=== PATIENT | female | born 1980 | race Caucasian/White ===

== ENCOUNTER 2016-12-02 07:49 | Emergency (ER) | payer OTHER ==
[2016-12-02 08:07] VITALS: BP 136/82
--- NOTE | 2016-12-02 08:24 | UC ---
Throat Pain/Nasal Frank HPI - HPI Summary HPI Summary: 36 year old female with complaints of stuffy runny nose, scratchy throat, head congestion x 4 days. Last evening vomited and had loose stools. She did not go to work this morning and needs a note, Denies fever or chills. Denies abdominal pain. She has been taking fluids well this morning with no vomiting - History of Current Complaint Chief Complaint: UCRespiratory Stated Complaint: CONGESTION, COUGH Time Seen by Provider: 12/02/16 08:11 Hx Obtained From: Patient Hx Last Menstrual Period: nov 11 ?: No Onset/Duration: Gradual Onset, Lasting Days - 4, Still Present Severity: Moderate Associated Signs & Symptoms: Positive: Dysphagia - scratchy, Nasal Discharge, Vomiting - resolved. Negative: FB Sensation, Wheezing, Hoarseness, Sinus Discomfort, Fever, Rash Related History: Seasonal Allergies - Epiglottits Risk Factors Epiglottis Risk Factors: Negative - Allergies/Home Medications Allergies/Adverse Reactions: Allergies Allergy/AdvReac Type Severity Reaction Status Date / Time Atorvastatin [From Lipitor] Allergy Severe Hives Verified 10/10/16 18:10 Lisinopril Allergy Severe Hives Verified 10/10/16 18:10 Penicillins Allergy Severe Anaphylatic Verified 10/10/16 18:10 Shock Home Medications: Home Medications Fluticasone-Salmeterol 500-50* [Advair Diskus 500-50*] 1 puff PO BID 12/02/16 [ History Confirmed 12/02/16] Insulin GLARGINE(*) [Lantus(*)] 6 units SUBCUT Q12H 12/02/16 [History Confirmed 12/02/16] PMH/Surg Hx/FS Hx/Imm Hx Previously Healthy: Yes Endocrine History Of: Reports: Diabetes - TYPE 1, Dyslipidemia Denies: Thyroid Disease Cardiovascular History Of: Reports: Hypertension Denies: Cardiac Disorders, Pacemaker/ICD Respiratory History Of: Reports: Asthma, Bronchitis Denies: COPD GI/ History Of: Denies: Ulcer, Renal Disease Neurological History Of: Reports: Migraine - chronic (on topamax: 50mg BID) - Surgical History Surgical History: None Surgery Procedure, Year, and Place: never had surgery - Family History Known Family History: Positive: Hypertension, Diabetes - Social History Occupation: Employed Full-time - at fast food Lives: With Family Alcohol Use: None Substance Use Type: None Smoking Status (MU): Never Smoked Tobacco Have You Smoked in the Last Year: No - Immunization History Most Recent Influenza Vaccination: 07/2015 Most Recent Tetanus Shot: 07/2013 Most Recent Pneumonia Vaccination: never received Vaccination Up to Date: Yes Review of Systems Constitutional: Negative Skin: Negative Eyes: Negative ENT: Sore Throat - scratchy, Nasal Discharge Respiratory: Cough Cardiovascular: Negative Gastrointestinal: Vomiting, Diarrhea Genitourinary: Negative Motor: Negative Neurovascular: Negative Musculoskeletal: Negative Neurological: Negative Psychological: Negative All Other Systems Reviewed And Are Negative: Yes Physical Exam Triage Information Reviewed: Yes Appearance: No Pain Distress, Ill-Appearing - mildly, Obese Vital Signs: Initial Vital Signs Temp 97.1 F 12/02/16 08:01 Pulse 96 12/02/16 08:01 Resp 17 12/02/16 08:01 BP 136/82 12/02/16 08:01 Pulse Ox 99 12/02/16 08:01 Vital Signs Reviewed: Yes Eyes: Positive: Conjunctiva Clear. Negative: Discharge ENT: Positive: Hearing grossly normal, Pharynx normal, Nasal congestion, Nasal drainage, Other: - no sinus pain or pressure. Negative: Tonsillar swelling, Tonsillar exudate Neck: Positive: Supple, Nontender, No Lymphadenopathy Respiratory: Positive: Lungs clear, Normal breath sounds, No respiratory distress. Negative: Crackles, Rhonchi, Wheezing Cardiovascular: Positive: RRR, No Murmur Abdomen Description: Positive: Nontender, No Organomegaly, Soft. Negative: CVA Tenderness (R), CVA Tenderness (L), Distended, Guarding Musculoskeletal: Positive: Strength Intact, ROM Intact Neurological: Positive: Alert, Muscle Tone Normal Psychological: Positive: Age Appropriate Behavior - pleasant and cooperative Skin: Negative: rashes, breakdown Throat Pain/Nasal Course/Dx - Differential Dx/Diagnosis Differential Diagnosis/HQI/PQRI: URI Provider Diagnoses: URI Discharge - Discharge Plan Condition: Stable Disposition: HOME Prescriptions: Fluticasone NASAL SPRAY 50MCG* [Flonase NASAL SPRAY 50MCG*] 2 spray BOTH NARES DAILY #1 btl Patient Education Materials: Upper Respiratory Infection (ED), Fluticasone ( Into the nose) Forms: *Work Release Additional Instructions: Over the counter decongestants and or cough medication may help with your symptoms
== END 2016-12-02 08:30 | disposition home or self-care (01) ==
LOC: UCEAST 07:49
DX: J06.9 Acute upper respiratory infection, unspecified (principal); Z88.1 Allergy status to other antibiotic agents; Z88.8 Allergy status to other drugs, medicaments and biological substances; E10.9 Type 1 diabetes mellitus without complications; Z79.4 Long term (current) use of insulin
CPT/HCPCS: 99212; G0463

== ENCOUNTER 2016-12-06 09:15 | Emergency (ER) | payer OTHER ==
[2016-12-06 09:24] VITALS: BP 153/88
--- NOTE | 2016-12-06 10:27 | ED ---
Influenza-Like Illness - HPI Summary HPI Summary: 36 F presents with cough, diarrhea, runny nose, and headache for a week. She was seen at the urgent care a week ago and diagnosed with a URI. She says nothing has changed since then she is just not getting better. She is taking her normal advair, flonase, and robitussin without relief. 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 She denies any nausea, vomiting, or abdominal pain. She denies any wheezing or chest pain. She says she has been having to use her inhaler more often than usually. She denies any dysuria, blood in her stool or urine, and she has been able to tolerate food okay. - History of Current Complaint Chief Complaint: EDUpperRespComplaint Time Seen by Provider: 12/06/16 10:16 - Allergy/Home Medications Allergies/Adverse Reactions: Allergies Allergy/AdvReac Type Severity Reaction Status Date / Time Atorvastatin [From Lipitor] Allergy Severe Hives Verified 12/06/16 09:25 Lisinopril Allergy Severe Hives Verified 12/06/16 09:25 Penicillins Allergy Severe Anaphylatic Verified 12/06/16 09:25 Shock PMH/Surg Hx/FS Hx/Imm Hx Endocrine/Hematology History: Reports: Hx Diabetes - TYPE 1 Denies: Hx Thyroid Disease Cardiovascular History: Reports: Hx Hypertension Denies: Hx Pacemaker/ICD Respiratory History: Reports: Hx Asthma, Hx Chronic Bronchitis - not chronic. Has had bronchitis Denies: Hx Chronic Obstructive Pulmonary Disease (COPD) Comment Only: Other Respiratory Problems/Disorders - Bee allergy GI History: Denies: Hx Ulcer History: Denies: Hx Renal Disease Musculoskeletal History: Reports: Other Musculoskeletal History - early onset of MS Sensory History: Denies: Hx Hearing Aid Neurological History: Reports: Hx Migraine - chronic (on topamax: 50mg BID) Psychiatric History: Denies: Hx Panic Disorder - Surgical History Surgery Procedure, Year, and Place: never had surgery - Immunization History Date of Tetanus Vaccine: Unk Date of Influenza Vaccine: Fall 2013 Infectious Disease History: No Infectious Disease History: Denies: Hx Clostridium Difficile, Hx Hepatitis, Hx Human Immunodeficiency Virus (HIV), Hx of Known/Suspected MRSA, Hx Shingles, Hx Tuberculosis, Hx Known/ Suspected VRE, Hx Known/Suspected VRSA, History Other Infectious Disease, Traveled Outside the [place] in Last 30 Days - Family History Known Family History: Positive: Hypertension, Diabetes - Social History Alcohol Use: None Substance Use Type: Reports: None Smoking Status (MU): Never Smoked Tobacco Have You Smoked in the Last Year: No Review of Systems Negative: Fever Negative: Chest Pain Positive: Shortness Of Breath, Cough Positive: Diarrhea. Negative: Abdominal Pain, Vomiting, Nausea All Other Systems Reviewed And Are Negative: Yes Physical Exam Triage Information Reviewed: Yes Vital Signs On Initial Exam: Initial Vitals Temp Pulse Resp BP Pulse Ox 97.6 F 90 15 153/88 100 12/06/16 09:15 12/06/16 09:15 12/06/16 09:15 12/06/16 09:15 12/06/16 09:15 Vital Signs Reviewed: Yes Appearance: Positive: Ill-Appearing Skin: Positive: Warm, Dry Head/Face: Positive: Normal Head/Face Inspection Eyes: Positive: Normal, EOMI, GLORIA, Conjunctiva Clear ENT: Positive: Normal ENT inspection, Pharynx normal, TMs normal, Other - no sinus tenderness Neck: Positive: Supple, Nontender, No Lymphadenopathy Respiratory/Lung Sounds: Positive: Clear to Auscultation, Breath Sounds Present , Other - no evidence of consolidation. Negative: Wheezes Cardiovascular: Positive: Normal, RRR Abdomen Description: Positive: Nontender, Soft Bowel Sounds: Positive: Present Diagnostics - Vital Signs Vital Signs Temp Pulse Resp BP Pulse Ox 12/06/16 09:15 97.6 F 90 15 153/88 100 - Laboratory Result Diagrams: 12/06/16 10:52 12/06/16 10:52 Lab Statement: Any lab studies that have been ordered have been reviewed, and results considered in the medical decision making process. - Radiology chest Xray Interpretation: No Acute Changes Radiology Interpretation Completed By: Radiologist Flu Symptom Course/Dx - Course Course Of Treatment: 37 F w/ PMH of DM and asthma presents with cough, runny nose, headache, and diarrhea for over a week. seen at urgent care and diagnosed with URI, says nothing has changed, no abdominal pain, bloody diarrhea, or fever. has been using OTC without relief. PE benign except for nasal discharge presents, lungs CTA, will xray and get labs, flu negative, chest xray normal, WBC normal, glucose is elevated discussed that can follow up with PCP to adjust insulin as needed, discussed still likely viral and can continue up to 4 weeks, add loperamide and tessalon to symptomatic treatment, patient agrees with plan - Diagnoses Differential Diagnosis/HQI/PQRI: Positive: Influenza, Pneumonia, Upper Respiratory Infection Provider Diagnoses: Upper respiratory infection, Diarrhea Discharge - Discharge Plan Condition: Good Disposition: HOME Prescriptions: Benzonatate CAP* [Tessalon CAP*] 100 mg PO TID #15 cap Loperamide CAP* [Imodium CAP*] 2 mg PO SEE INSTRUCTIONS #16 cap Patient Education Materials: Upper Respiratory Infection (ED) Forms: *Work Release Referrals: Jong Lyon III [employer] [employer] [Primary Care Provider] - Additional Instructions: Use flonase and nasal saline for noses Continue normal asthma medication and use inhaler as needed every 6 hours Add tessalon up to three times a day for cough Loperamide Initial: 4 mg (2 tablets), followed by 2 mg (1 tablet) after each loose stool (maximum: 16 mg/day) Drink small amounts of fluid as tolerated When able to eat follow BRAT diet: Bananas, rice, applesauce, toast Take ibuprofen or Tylenol for pain as needed every 6 hours Follow up with primary within 5 days to discuss blood sugar Return to ED if develop fever, severe abdominal pain, or any new or worsening symptoms
--- NOTE | 2016-12-06 11:01 | RAD ---
INDICATION: Cough. COMPARISON: Comparison is made with prior chest x-ray study from January 04, 2016. TECHNIQUE: Dual-energy PA and lateral views of the chest were obtained. FINDINGS: Cardiac and mediastinal contours appear normal. The lungs are underinflated and clear. No pleural effusion is seen. IMPRESSION: NO EVIDENCE FOR ACTIVE CARDIOPULMONARY DISEASE.
[2016-12-06 11:03] LABS: Hematocrit 39 % (35-47); Hemoglobin 12.6 g/dl (12.0-16.0); Mean Corpuscular HGB Conc 32 g/dl (31-36); Mean Corpuscular Hemoglobin 26 pg (27-31); Mean Corpuscular Volume 82 fL (80-97); Mean Platelet Volume 9 um3 (7.4-10.4); Red Blood Count 4.79 10^6/ul (4.0-5.4); Red Cell Distribution Width 14 % (10.5-15); White Blood Count 8.9 10^3/ul (3.5-10.8)
[2016-12-06 11:14] LABS: ALT 16 U/L (7-52); AST 13 U/L (13-39); Albumin 4.3 g/dL (3.2-5.2); Alkaline Phosphatase 63 U/L (34-104); Anion Gap 8 mmol/L (2-11); BUN/Creatinine Ratio 15.1 (8-20); Blood Urea Nitrogen 11 mg/dL (6-24); CO2 Carbon Dioxide 23 mmol/L (22-32); Calcium 9.1 mg/dL (8.6-10.3); Chloride 104 mmol/L (101-111); EGFR African American 117.4 (>60); EGFR Non-African American 91.3 (>60); Globulin 3.1 g/dL (2-4); Glucose 251 mg/dL (70-100); Potassium 3.8 mmol/L (3.5-5.0); Sodium 135 mmol/L (133-145); Total Protein 7.4 g/dL (6.4-8.9)
== END 2016-12-06 11:44 | disposition home or self-care (01) ==
LOC: ED 09:15
DX: J06.9 Acute upper respiratory infection, unspecified (principal); R05 Cough; R19.7 Diarrhea, unspecified; R51 Headache; R06.02 Shortness of breath; Z88.0 Allergy status to penicillin
CPT/HCPCS: 36415; 71020; 80053; 84702; 85025; 87502; 99283

== ENCOUNTER 2016-12-09 11:15 | Emergency (ER) | payer OTHER ==
[2016-12-09] MEDS ORDERED: Pantoprazole IV* 40 MG IV ONE (16:25)
[2016-12-09] MEDS ORDERED: Ondansetron INJ* 2 MG/ML VIAL IV ONE (16:25)
[2016-12-09] MEDS ORDERED: Al Hydrox/Mg Hydrox/Simet LIQ* 30 ML UDC PO ONE (16:25)
[2016-12-09] MEDS ORDERED: NS 0.9% 1000 ML* 2,000 ML IV ONE (16:25)
[2016-12-09] MEDS ORDERED: Ketorolac INJ* 30 MG/ML 1 ML VIAL IV ONE (16:25)
[2016-12-09 16:40] LABS: Hematocrit 43 % (35-47); Hemoglobin 14.1 g/dl (12.0-16.0); Mean Corpuscular HGB Conc 33 g/dl (31-36); Mean Corpuscular Hemoglobin 26 pg (27-31); Mean Corpuscular Volume 79 fL (80-97); Mean Platelet Volume 9 um3 (7.4-10.4); Red Blood Count 5.37 10^6/ul (4.0-5.4); Red Cell Distribution Width 14 % (10.5-15); White Blood Count 11.9 10^3/ul (3.5-10.8)
[2016-12-09 16:53] LABS: ALT 18 U/L (7-52); AST 16 U/L (13-39); Alkaline Phosphatase 88 U/L (34-104); Anion Gap 9 mmol/L (2-11); BUN/Creatinine Ratio 22.4 (8-20); Blood Urea Nitrogen 15 mg/dL (6-24); C Reactive Protein 14.25 mg/L (< 5.00); CO2 Carbon Dioxide 23 mmol/L (22-32); Calcium 10.2 mg/dL (8.6-10.3); Chloride 101 mmol/L (101-111); Creatine Kinase 43 U/L (10-223); EGFR African American 129.6 (>60); EGFR Non-African American 100.8 (>60); Globulin 3.5 g/dL (2-4); Glucose 112 mg/dL (70-100); Lipase 17 U/L (11.0-82.0); Potassium 3.6 mmol/L (3.5-5.0); Sodium 133 mmol/L (133-145); Total Protein 8.5 g/dL (6.4-8.9)
[2016-12-09] MEDS ORDERED: Ketorolac INJ* 60 MG/2 ML VIAL ONE (17:23)
--- NOTE | 2016-12-09 17:30 | RAD ---
INDICATION: Right upper quadrant pain COMPARISON: None TECHNIQUE: Longitudinal and transverse scans of the right upper quadrant were obtained. Doppler interrogation of the hepatic and portal venous system was performed. FINDINGS: Liver: There is hepatic steatosis. There are no masses . The liver measures 16.7 cm in cephalocaudal dimension. Vessels: Hepatic and portal venous flow is not well assessed due to body habitus and bowel gas.. Bile ducts: There is no evidence of intrahepatic or extrahepatic ductal dilatation. The common duct measures 0.2 cm. Gallbladder: The sonographic appearance of the gallbladder is normal. There is no evidence of cholelithiasis, thickening of the gallbladder wall, or pericholecystic fluid. Pancreas: Not visualized due to bowel gas Right kidney: The right kidney is normal in size and echogenicity. There are no masses or calculi. There is no evidence of hydronephrosis. The right kidney measures 9.5 x 5.3 x 4.2 cm. IVC and aorta: The aorta and superior vena cava appear normal. Fluid: There is no ascites. Other: None. IMPRESSION: LIMITED STUDY. NORMAL GALLBLADDER. HEPATIC STEATOSIS.
[2016-12-09] MEDS ORDERED: Iohexol 350* (CONTRAST) 500 ML MDV IV ONE (17:34)
--- NOTE | 2016-12-09 18:29 | RAD ---
INDICATION: Chest pain. Short of breath. Evaluate for pulmonary embolus. Chest and abdominal pain COMPARISON: Chest x-ray same date; CTA chest August 01, 2014 TECHNIQUE: Axial source images were obtained from the thoracic inlet to the hemidiaphragms following administration of [address] angiographic technique was utilized. Coronal and sagittal reconstructed images were acquired. CHEST FINDINGS: Neck/thyroid: The visualized neck to include the thyroid appear normal. Chest wall: There are no acute abnormalities of the bony thorax or chest wall. There is no supraclavicular, infraclavicular, or axillary lymphadenopathy. Lungs : There are no pulmonary parenchymal masses or infiltrates. The pulmonary interstitium appears normal. There are no endobronchial lesions. Cardiomediastinal structures: There is no CT evidence of acute pulmonary embolic disease. The heart is normal in size. There is no pericardial effusion. There is no evidence of aortic aneurysm or dissection. There is no mediastinal or hilar adenopathy. The esophagus appears normal. Pleura : There are no pleural-based masses or effusions. Other: None. IMPRESSION: NO CT EVIDENCE OF ACUTE PULMONARY EMBOLIC DISEASE. LUNGS CLEAR.
[2016-12-09] MEDS ORDERED: HYDROcodone/ACETAMIN 5-325 MG* 1 TAB PO ONE (20:38)
--- NOTE | 2016-12-09 20:43 | ED ---
Carloz Banerjee Billy, scribed for Gerson Boyer MD on 12/09/16 at 1625 . HPI Chest Pain - HPI Summary HPI Summary: Patient is a 36 year-old female coming to [facility] presenting with constant midsternal chest pain since last night at 2200. At rest during onset. She describes sharp pain, severity 9/10. Pain is worse with positional changes ( leaning forward, leaning back). She denies any nausea, abdominal pain, or leg edema. She states she feels dizzy and warm at this time; no diaphoresis. She also reports mild SOB. She does not use oral BC. - History of Current Complaint Chief Complaint: EDChestPainROMI Time Seen by Provider: 12/09/16 16:07 Hx Obtained From: Patient Onset/Duration: Started Hours Ago Time of Onset: 22:00 Timing: Constant Initial Severity: Moderate Current Severity: Moderate Pain Intensity: 9 Pain Scale Used: 0-10 Numeric Chest Pain Location: Mid Sternal Chest Pain Radiates: No Character: Sharp/Stabbing Aggravating Factor(s): Position Alleviating Factor(s): Nothing Associated Signs and Symptoms: Positive: Chest Pain, Shortness of Breath, Other : - dizzy, warm. Negative: Swelling, Nausea, Abdominal Pain, Calf Pain/Swelling , Edema - Allergy/Home Medications Allergies/Adverse Reactions: Allergies Allergy/AdvReac Type Severity Reaction Status Date / Time Atorvastatin [From Lipitor] Allergy Severe Hives Verified 12/09/16 11:22 Lisinopril Allergy Severe Hives Verified 12/09/16 11:22 Penicillins Allergy Severe Anaphylatic Verified 12/09/16 11:22 Shock PMH/Surg Hx/FS Hx/Imm Hx Endocrine/Hematology History: Reports: Hx Diabetes - TYPE 1 Denies: Hx Thyroid Disease Cardiovascular History: Reports: Hx Hypertension Denies: Hx Pacemaker/ICD Respiratory History: Reports: Hx Asthma, Hx Chronic Bronchitis - not chronic. Has had bronchitis Denies: Hx Chronic Obstructive Pulmonary Disease (COPD) Comment Only: Other Respiratory Problems/Disorders - Bee allergy GI History: Denies: Hx Ulcer History: Denies: Hx Renal Disease Musculoskeletal History: Reports: Other Musculoskeletal History - early onset of MS Sensory History: Denies: Hx Hearing Aid Neurological History: Reports: Hx Migraine - chronic (on topamax: 50mg BID) Psychiatric History: Denies: Hx Panic Disorder - Surgical History Surgery Procedure, Year, and Place: never had surgery - Immunization History Date of Tetanus Vaccine: Unk Date of Influenza Vaccine: Fall 2013 Infectious Disease History: No Infectious Disease History: Denies: Hx Clostridium Difficile, Hx Hepatitis, Hx Human Immunodeficiency Virus (HIV), Hx of Known/Suspected MRSA, Hx Shingles, Hx Tuberculosis, Hx Known/ Suspected VRE, Hx Known/Suspected VRSA, History Other Infectious Disease, Traveled Outside the [place] in Last 30 Days - Family History Known Family History: Positive: Hypertension, Diabetes - Social History Alcohol Use: None Substance Use Type: Reports: None Smoking Status (MU): Never Smoked Tobacco Have You Smoked in the Last Year: No Review of Systems Positive: Other - feels warm. Negative: Skin Diaphoresis Positive: Chest Pain Positive: Shortness Of Breath Negative: Abdominal Pain, Nausea Negative: Edema Neurological: Other - dizzy All Other Systems Reviewed And Are Negative: Yes Physical Exam Triage Information Reviewed: Yes Vital Signs On Initial Exam: Initial Vitals Temp Pulse Resp BP Pulse Ox 98.0 F 86 18 120/79 100 12/09/16 11:22 12/09/16 11:22 12/09/16 11:22 12/09/16 11:22 12/09/16 11:22 Vital Signs Reviewed: Yes Appearance: Positive: Well-Appearing, Pain Distress - mild Skin: Positive: Warm, Skin Color Reflects Adequate Perfusion, Dry Head/Face: Positive: Normal Head/Face Inspection Eyes: Positive: EOMI, GLORIA ENT: Positive: Normal ENT inspection Neck: Positive: Supple, Nontender Respiratory/Lung Sounds: Positive: Clear to Auscultation, Breath Sounds Present Cardiovascular: Positive: RRR, Other - chest wall tenderness Abdomen Description: Positive: Soft, Other: - epigastric tenderness Bowel Sounds: Positive: Present Musculoskeletal: Positive: Normal, Strength/ROM Intact, Other - No pedal edema or calf tenderness.. Negative: Edema Left, Edema Right Neurological: Positive: Normal, Sensory/Motor Intact, Alert, Oriented to Person Place, Time Psychiatric: Positive: Affect/Mood Appropriate Diagnostics - Vital Signs Vital Signs Temp Pulse Resp BP Pulse Ox 12/09/16 14:49 102 18 125/90 98 12/09/16 13:04 95 18 148/99 99 12/09/16 12:26 98.6 F 88 20 139/85 99 12/09/16 11:22 98.0 F 86 18 120/79 100 - Laboratory Lab Results: Lab Results 12/09/16 12/09/16 12/09/16 Range/Units 16:11 16:11 16:11 WBC 11.9 H (3.5-10.8) 10^3/ul RBC 5.37 (4.0-5.4) 10^6/ul Hgb 14.1 (12.0-16.0) g/dl Hct 43 (35-47) % MCV 79 L (80-97) fL MCH 26 L (27-31) pg MCHC 33 (31-36) g/dl RDW 14 (10.5-15) % Plt Count 350 (150-450) 10^3/ul MPV 9 (7.4-10.4) um3 Neut % (Auto) 64.3 (38-83) % Lymph % (Auto) 26.6 (25-47) % Rush % (Auto) 7.0 (1-9) % Eos % (Auto) 1.4 (0-6) % Baso % (Auto) 0.7 (0-2) % Absolute Neuts (auto) 7.7 (1.5-7.7) 10^3/ul Absolute Lymphs (auto) 3.2 (1.0-4.8) 10^3/ul Absolute Monos (auto) 0.8 (0-0.8) 10^3/ul Absolute Eos (auto) 0.2 (0-0.6) 10^3/ul Absolute Basos (auto) 0.1 (0-0.2) 10^3/ul Absolute Nucleated RBC 0.02 10^3/ul Nucleated RBC % 0.2 INR (Anticoag Therapy) 0.95 (0.89-1.11) APTT 30.9 (26.0-36.3) seconds Sodium 133 (133-145) mmol/L Potassium 3.6 (3.5-5.0) mmol/L Chloride 101 (101-111) mmol/L Carbon Dioxide 23 (22-32) mmol/L Anion Gap 9 (2-11) mmol/L BUN 15 (6-24) mg/dL Creatinine 0.67 (0.51-0.95) mg/dL Est GFR ( Amer) 129.6 (>60) Est GFR (Non-Af Amer) 100.8 (>60) BUN/Creatinine Ratio 22.4 H (8-20) Glucose 112 H (70-100) mg/dL Lactic Acid (0.5-2.0) mmol/L Calcium 10.2 (8.6-10.3) mg/dL Magnesium 2.0 (1.9-2.7) mg/dL Total Bilirubin 0.80 (0.2-1.0) mg/dL AST 16 (13-39) U/L ALT 18 (7-52) U/L Alkaline Phosphatase 88 (34-104) U/L Total Creatine Kinase 43 (10-223) U/L CK-MB (CK-2) 0.7 (0.6-6.3) ng/mL Troponin I 0.00 (<0.04) ng/mL C-Reactive Protein 14.25 H (< 5.00) mg/L B-Natriuretic Peptide ( - 100) pg/mL Total Protein 8.5 (6.4-8.9) g/dL Albumin 5.0 (3.2-5.2) g/dL Globulin 3.5 (2-4) g/dL Albumin/Globulin Ratio 1.4 (1-3) Lipase 17 (11.0-82.0) U/L TSH 1.60 (0.34-5.60) mcIU/mL Beta HCG, Quant < 0.60 mIU/mL 12/09/16 12/09/16 Range/Units 16:11 16:11 WBC (3.5-10.8) 10^3/ul RBC (4.0-5.4) 10^6/ul Hgb (12.0-16.0) g/dl Hct (35-47) % MCV (80-97) fL MCH (27-31) pg MCHC (31-36) g/dl RDW (10.5-15) % Plt Count (150-450) 10^3/ul MPV (7.4-10.4) um3 Neut % (Auto) (38-83) % Lymph % (Auto) (25-47) % Rush % (Auto) (1-9) % Eos % (Auto) (0-6) % Baso % (Auto) (0-2) % Absolute Neuts (auto) (1.5-7.7) 10^3/ul Absolute Lymphs (auto) (1.0-4.8) 10^3/ul Absolute Monos (auto) (0-0.8) 10^3/ul Absolute Eos (auto) (0-0.6) 10^3/ul Absolute Basos (auto) (0-0.2) 10^3/ul Absolute Nucleated RBC 10^3/ul Nucleated RBC % INR (Anticoag Therapy) (0.89-1.11) APTT (26.0-36.3) seconds Sodium (133-145) mmol/L Potassium (3.5-5.0) mmol/L Chloride (101-111) mmol/L Carbon Dioxide (22-32) mmol/L Anion Gap (2-11) mmol/L BUN (6-24) mg/dL Creatinine (0.51-0.95) mg/dL Est GFR ( Amer) (>60) Est GFR (Non-Af Amer) (>60) BUN/Creatinine Ratio (8-20) Glucose (70-100) mg/dL Lactic Acid 1.8 (0.5-2.0) mmol/L Calcium (8.6-10.3) mg/dL Magnesium (1.9-2.7) mg/dL Total Bilirubin (0.2-1.0) mg/dL AST (13-39) U/L ALT (7-52) U/L Alkaline Phosphatase (34-104) U/L Total Creatine Kinase (10-223) U/L CK-MB (CK-2) (0.6-6.3) ng/mL Troponin I (<0.04) ng/mL C-Reactive Protein (< 5.00) mg/L B-Natriuretic Peptide 16 ( - 100) pg/mL Total Protein (6.4-8.9) g/dL Albumin (3.2-5.2) g/dL Globulin (2-4) g/dL Albumin/Globulin Ratio (1-3) Lipase (11.0-82.0) U/L TSH (0.34-5.60) mcIU/mL Beta HCG, Quant mIU/mL Result Diagrams: 12/09/16 16:11 12/09/16 16:11 Lab Statement: Any lab studies that have been ordered have been reviewed, and results considered in the medical decision making process. - CT CTA chest CT Interpretation Completed By: Radiologist - NO CT EVIDENCE OF ACUTE PULMONARY EMBOLIC DISEASE. LUNGS CLEAR. - Ultrasound No standard instances Ultrasound Interpretation Completed By: Radiologist - Gallbladder US: Limited study. Normal gallbladder. Hepatic steatosis. - EKG 1118 EKG Interpretation: NSR 89 bpm, normal ST segment, no ectopy Chest Pain Course/Dx - Course Assessment/Plan: DISCUSSED RESULTS WITH PATIENT. DISCHARGE HOME STABLE. - Diagnoses Provider Diagnoses: Chest pain, Upper abdominal pain Discharge - Discharge Plan Condition: Stable Disposition: HOME Prescriptions: HYDROcodone/ACETAMIN 5-325 MG* [[place] 5-325 TAB*] 1 tab PO Q6H PRN #10 tab MDD 4 PRN Reason: Pain Omeprazole CAP* [Prilosec CAP* 20 MG] 20 mg PO BID #30 cap.dr Patient Education Materials: Chest Pain (ED), Abdominal Pain (ED) Referrals: Jong Lyon III, [employer] [Primary Care Provider] - Additional Instructions: FOLLOW UP WITH YOUR DOCTOR. TAKE THE ANTACID MEDICATION, OMEPRAZOLE DIRECTED. RETURN TO THE EMERGENCY DEPARTMENT FOR ANY WORSENING OF YOUR CONDITION; PAIN, FEVER, SHORTNESS OF BREATH, YOU FEEL ILL OR QUESTIONS OR CONCERNS. The documentation as recorded by the Carloz arias Billy accurately reflects the service I personally performed and the decisions made by me, Gerson Boyer MD.
[2016-12-09 22:01] VITALS: BP 105/55
== END 2016-12-09 21:59 | disposition home or self-care (01) ==
LOC: ED 11:15
DX: R07.9 Chest pain, unspecified (principal); R10.10 Upper abdominal pain, unspecified; E10.9 Type 1 diabetes mellitus without complications; G43.909 Migraine, unspecified, not intractable, without status migrainosus; I10 Essential (primary) hypertension; G35 Multiple sclerosis; J45.909 Unspecified asthma, uncomplicated; Z88.0 Allergy status to penicillin
CPT/HCPCS: 36415; 71275; 76705; 80053; 82550; 82553; 83605; 83690; 83735; 83880; 84443; 84484; 84702; 85025; 85610; 85730; 86140; 93005; 96360; 96374; 96375; 99285; A9270-GY; J1885; J2405; Q9967

== ENCOUNTER 2017-01-18 20:02 | Emergency (ER) | payer OTHER ==
[2017-01-18] MEDS ORDERED: Cyclobenzaprine TAB* 10 MG PO ONE (20:55)
[2017-01-18] MEDS ORDERED: oxyCODONE/Acetamin 5/325 MG* TAB PO ONE (20:55)
[2017-01-18 21:01] VITALS: BP 124/73
--- NOTE | 2017-01-18 21:11 | ED ---
Back Pain - HPI Summary HPI Summary: 36F presents with back pain today. Pain is locate on the left side of her lower back. She denies any injury. She states she has had this pain before. She states the pain does not radiate anywhere. She denies any numbness or tingling. She denies any loss of bowel or bladder or saddle anaesthesia. Patient already took 800mg ibuprofen before arrival. - History of Current Complaint Chief Complaint: EDBackInjuryPain Time Seen by Provider: 01/18/17 20:45 Hx Last Menstrual Period: nov 11 Pain Intensity: 10 - Allergies/Home Medications Allergies/Adverse Reactions: Allergies Allergy/AdvReac Type Severity Reaction Status Date / Time Atorvastatin [From Lipitor] Allergy Severe Hives Verified 12/09/16 11:22 Lisinopril Allergy Severe Hives Verified 12/09/16 11:22 Penicillins Allergy Severe Anaphylatic Verified 12/09/16 11:22 Shock PMH/Surg Hx/FS Hx/Imm Hx Endocrine/Hematology History: Reports: Hx Diabetes - TYPE 1 Denies: Hx Thyroid Disease Cardiovascular History: Reports: Hx Hypertension Denies: Hx Pacemaker/ICD Respiratory History: Reports: Hx Asthma, Hx Chronic Bronchitis - not chronic. Has had bronchitis Denies: Hx Chronic Obstructive Pulmonary Disease (COPD) Comment Only: Other Respiratory Problems/Disorders - Bee allergy GI History: Denies: Hx Ulcer History: Denies: Hx Renal Disease Musculoskeletal History: Reports: Other Musculoskeletal History - early onset of MS Sensory History: Denies: Hx Hearing Aid Neurological History: Reports: Hx Migraine - chronic (on topamax: 50mg BID) Psychiatric History: Denies: Hx Panic Disorder - Surgical History Surgery Procedure, Year, and Place: never had surgery - Immunization History Date of Tetanus Vaccine: Unk Date of Influenza Vaccine: Fall 2013 Infectious Disease History: No Infectious Disease History: Denies: Hx Clostridium Difficile, Hx Hepatitis, Hx Human Immunodeficiency Virus (HIV), Hx of Known/Suspected MRSA, Hx Shingles, Hx Tuberculosis, Hx Known/ Suspected VRE, Hx Known/Suspected VRSA, History Other Infectious Disease, Traveled Outside the [place] in Last 30 Days - Family History Known Family History: Positive: Hypertension, Diabetes - Social History Alcohol Use: None Substance Use Type: Reports: None Smoking Status (MU): Never Smoked Tobacco Have You Smoked in the Last Year: No Review of Systems Negative: Fever Negative: Chest Pain Negative: Shortness Of Breath Positive: Myalgia - back pain All Other Systems Reviewed And Are Negative: Yes Physical Exam Triage Information Reviewed: Yes Vital Signs On Initial Exam: Initial Vitals Temp Pulse Resp BP Pulse Ox 97.3 F 95 16 141/88 100 01/18/17 20:03 01/18/17 20:03 01/18/17 20:03 01/18/17 20:03 01/18/17 20:03 Vital Signs Reviewed: Yes Appearance: Positive: Well-Appearing Skin: Positive: Warm, Dry Head/Face: Positive: Normal Head/Face Inspection Eyes: Positive: Normal, Conjunctiva Clear Respiratory/Lung Sounds: Positive: Clear to Auscultation, Breath Sounds Present Cardiovascular: Positive: Normal, RRR Musculoskeletal: Positive: Other - no midline tenderness, tender to left side of lower back, neg SLR Diagnostics - Vital Signs Vital Signs Temp Pulse Resp BP Pulse Ox 01/18/17 21:01 97.7 F 97 20 124/73 98 01/18/17 20:03 97.3 F 95 16 141/88 100 - Laboratory Lab Statement: Any lab studies that have been ordered have been reviewed, and results considered in the medical decision making process. Back Pain Course/Dx - Course Course Of Treatment: 36F presents with left side lower back that does not radiated anywhere. no injury. on exam pain is not midline, neg SLR. gave pain medication and pain improved, gave script for muscle relaxers and will have follow up with primary, patient understands and agrees with plan - Diagnoses Differential Diagnosis/HQI/PQRI: Positive: Herniated Disc, Strain, Sprain Provider Diagnoses: Back pain Discharge - Discharge Plan Condition: Good Disposition: HOME Prescriptions: Cyclobenzaprine TAB* [Flexeril TAB*] 10 mg PO TID PRN #9 tab PRN Reason: Pain Patient Education Materials: Back Pain (ED) Referrals: Jong Lyon III OVERWEAVER [Primary Care Provider] - Additional Instructions: Take muscle relaxers three times a day for 3 days Apply lidocaine patches to area for up to 12 hours in one 24 hour period Use ibuprofen or Tylenol for pain every 6 hours ice/heat area, move as much as possible Follow up with primary within 5 days Return to ED if unable to ambulate or develop any new or worsening symptoms
== END 2017-01-18 21:40 | disposition home or self-care (01) ==
LOC: ED 20:02
DX: M54.9 Dorsalgia, unspecified (principal)
CPT/HCPCS: 99282; A9270-GY

== ENCOUNTER 2017-02-06 17:07 | Emergency (ER) | payer OTHER ==
--- NOTE | 2017-02-06 18:46 | ED ---
Respiratory - HPI Summary HPI Summary: 37F w/ PMH of asthma and DM presents with left ear pain, chest congestion, for a day. She took cold and flu without relief. She denies any chest pain or SOB. She admits to headache, nasal discharge, nausea, and diarrhea. She denies any abdominal pain, vomiting, fever, or sore throat. She has not been using her inhaler. She denies any one else being sick. She admits to fatigue. She takes insulin for her DM and states that sugars have been a little bit higher than normal. - History of Current Complaint Chief Complaint: EDEarPain Stated Complaint: EAR PAIN,HEAD CONGESTION Time Seen by Provider: 02/06/17 18:23 Pain Intensity: 8 - Allergy/Home Medications Allergies/Adverse Reactions: Allergies Allergy/AdvReac Type Severity Reaction Status Date / Time Atorvastatin [From Lipitor] Allergy Severe Hives Verified 02/06/17 17:12 Lisinopril Allergy Severe Hives Verified 02/06/17 17:12 Penicillins Allergy Severe Anaphylatic Verified 02/06/17 17:12 Shock PMH/Surg Hx/FS Hx/Imm Hx Endocrine/Hematology History: Reports: Hx Diabetes - TYPE 1 Denies: Hx Thyroid Disease Cardiovascular History: Reports: Hx Hypertension Denies: Hx Pacemaker/ICD Respiratory History: Reports: Hx Asthma, Hx Chronic Bronchitis - not chronic. Has had bronchitis Denies: Hx Chronic Obstructive Pulmonary Disease (COPD) Comment Only: Other Respiratory Problems/Disorders - Bee allergy GI History: Denies: Hx Ulcer History: Denies: Hx Renal Disease Musculoskeletal History: Reports: Other Musculoskeletal History - early onset of MS Sensory History: Denies: Hx Hearing Aid Neurological History: Reports: Hx Migraine - chronic (on topamax: 50mg BID) Psychiatric History: Denies: Hx Panic Disorder - Surgical History Surgery Procedure, Year, and Place: never had surgery - Immunization History Date of Tetanus Vaccine: Unk Date of Influenza Vaccine: Fall 2013 Infectious Disease History: No Infectious Disease History: Denies: Hx Clostridium Difficile, Hx Hepatitis, Hx Human Immunodeficiency Virus (HIV), Hx of Known/Suspected MRSA, Hx Shingles, Hx Tuberculosis, Hx Known/ Suspected VRE, Hx Known/Suspected VRSA, History Other Infectious Disease, Traveled Outside the [place] in Last 30 Days - Family History Known Family History: Positive: Hypertension, Diabetes - Social History Alcohol Use: None Substance Use Type: Reports: None Smoking Status (MU): Never Smoked Tobacco Have You Smoked in the Last Year: No Review of Systems Negative: Fever Positive: Ear Ache, Nasal Discharge. Negative: Sore Throat Negative: Chest Pain Positive: Cough. Negative: Shortness Of Breath Positive: Diarrhea, Nausea. Negative: Abdominal Pain, Vomiting All Other Systems Reviewed And Are Negative: Yes Physical Exam Triage Information Reviewed: Yes Vital Signs On Initial Exam: Initial Vitals Temp Pulse Resp BP Pulse Ox 98.2 F 70 18 155/86 100 02/06/17 17:12 02/06/17 17:12 02/06/17 17:12 02/06/17 17:12 02/06/17 17:12 Vital Signs Reviewed: Yes Appearance: Positive: Well-Appearing Skin: Positive: Warm, Dry Head/Face: Positive: Normal Head/Face Inspection Eyes: Positive: Normal, Conjunctiva Clear ENT: Positive: Normal ENT inspection, Pharynx normal, TMs normal - fluid located behind left ear. Negative: TM bulging, TM dull, TM red Respiratory/Lung Sounds: Positive: Clear to Auscultation, Breath Sounds Present , Other - neg egophony Cardiovascular: Positive: Normal, RRR Abdomen Description: Positive: Nontender, Soft Bowel Sounds: Positive: Present Diagnostics - Vital Signs Vital Signs Temp Pulse Resp BP Pulse Ox 02/06/17 17:12 98.2 F 70 18 155/86 100 - Laboratory Lab Statement: Any lab studies that have been ordered have been reviewed, and results considered in the medical decision making process. - Radiology chest Xray Interpretation: No Acute Changes Radiology Interpretation Completed By: Radiologist Disposition - Course Course Of Treatment: 37F presents with left ear pain, chest congestion for a day. on exam lungs CTA, ear fluid behind left ear but no redness or bulging, told to use flonase prescribed last time saw patient to relief pressure along with saline rinses. flu swap negative. chest xray normal. discussed with patient and would like robitussin AC which prescribed and zofran for nausea. discussed likely viral and to treat supporatively. patient understands and agrees with plan - Differential Dx - Cardiopulmonary Differential Diagnoses - Cardiopulmonary: Asthma, Bronchitis, Influenza, Lower Resp Infection - Diagnoses Provider Diagnoses: Upper respiratory infection Discharge - Discharge Plan Condition: Good Disposition: HOME Prescriptions: Ondansetron ODT TAB* [Zofran 4 MG Odt TAB*] 4 mg PO Q6H PRN #12 tab.odt PRN Reason: Nausea guaiFENesin/CODIEN 100MG-10MG* [Robitussin AC 100Mg-10Mg*] 5 ml PO Q4H PRN #120 ml MDD 6 PRN Reason: Cough Patient Education Materials: Upper Respiratory Infection (ED) Forms: *Work Release Referrals: Jong Lyon III, QUILL SKINNER [Primary Care Provider] - Additional Instructions: Use Robitussin 5ml (1 teaspoon) every 4 hours as need for cough Use inhaler one puff every 4 hours for cough as needed Take zofran every 6 hours as needed for nausea Use saline in the nose for nasal congestion Use Flonase one spray each nostril twice a day Use humidifier or place warm bowls of water around the room Can Tylenol or ibuprofen every 6 hours for pain Follow up with primary care physician in 5 days Return to ED if develop chest pain or shortness of breath or any new or worsening symptoms
--- NOTE | 2017-02-06 20:05 | RAD ---
INDICATION: Cough COMPARISON: Similar chest x-ray dated December 06, 2016 TECHNIQUE: PA and lateral views of the chest were obtained. FINDINGS: The heart and mediastinum are normal in size and contour. The lungs are grossly clear. There is no evidence of large pleural effusion. Visualized bones are normal for the patient's age. There is no radiographic evidence of free air beneath the diaphragm IMPRESSION: No radiographic evidence of acute cardiopulmonary disease.
[2017-02-06 20:16] VITALS: BP 150/80
== END 2017-02-06 20:15 | disposition home or self-care (01) ==
LOC: ED 17:07
DX: J06.9 Acute upper respiratory infection, unspecified (principal); H92.09 Otalgia, unspecified ear; R05 Cough; R19.7 Diarrhea, unspecified; R11.0 Nausea
CPT/HCPCS: 71020; 87502; 99282

== ENCOUNTER 2017-02-18 08:32 | Emergency (ER) | payer OTHER ==
[2017-02-18 08:54] VITALS: BP 126/69
--- NOTE | 2017-02-18 09:36 | UC ---
Skin Complaint HPI - HPI Summary HPI Summary: The patient comes in today for: 1. Red bumps: Onset: Last night. Palliative/provocative: Nothing makes the red bumps better or worse. Quality: Itching. Region: Arms, stomach, legs, hands--none on her scalp or face. Severity: 9/10 Time: Constant. Associated symptoms: Previous treatment: Cortisone cream (OTC)--no help. Previous problem: None. Fevers: None. Cough/shortness of breath: NOne. Others at home: None. * - History of Current Complaint Chief Complaint: UCSkin Time Seen by Provider: 02/18/17 09:31 Stated Complaint: RED ITCHY BUMPS/SKIN Hx Obtained From: Patient Hx Last Menstrual Period: 02/01/17 - Allergy/Home Medications Allergies/Adverse Reactions: Allergies Allergy/AdvReac Type Severity Reaction Status Date / Time Atorvastatin [From Lipitor] Allergy Severe Hives Verified 02/18/17 08:38 Lisinopril Allergy Severe Hives Verified 02/18/17 08:38 Penicillins Allergy Severe Anaphylatic Verified 02/18/17 08:38 Shock Review of Systems Constitutional: Negative Skin: Rash Eyes: Negative ENT: Negative Respiratory: Negative Cardiovascular: Negative Gastrointestinal: Negative Genitourinary: Negative All Other Systems Reviewed And Are Negative: Yes PMH/Surg Hx/FS Hx/Imm Hx Previously Healthy: No Endocrine History Of: Reports: Diabetes - TYPE 1, Dyslipidemia - Not on medication at this time. Denies: Thyroid Disease, Hyperthyroidism, Hypothyroidism Cardiovascular History Of: Reports: Hypertension Denies: Cardiac Disorders, Pacemaker/ICD, Myocardial Infarction, Congestive Heart Failure, Atrial Fibrillation, Deep Vein Thrombosis, Bleeding Disorders Respiratory History Of: Reports: Asthma Denies: COPD, Bronchitis, Pneumonia, Pulmonary Embolism GI/ History Of: Denies: Gastroesophageal Reflux, Ulcer, Gastrointestinal Bleed, Gall Bladder Disease, Kidney Stones, Diverticulitis, Renal Disease, Urosepsis Neurological History Of: Reports: Migraine - chronic (on topamax: 50mg BID) Denies: TIA, CVA, Dementia, Seizures Psychological History Of: Denies: Anxiety, Depression, Bipolar Disorder, Schizophrenia, Post Traumatic Stress Disorder Cancer History Of: Denies: Lung Cancer, Colorectal Cancer, Breast Cancer, Prostate Cancer, Cervical Cancer Other History Of: Negative For: HIV, Hepatitis B, Hepatitis C, Anticoagulant Therapy - Surgical History Surgical History: None Surgery Procedure, Year, and Place: Denies - Family History Known Family History: Positive: Hypertension, Diabetes - Social History Occupation: Employed Full-time Alcohol Use: None Substance Use Type: None Smoking Status (MU): Never Smoked Tobacco Have You Smoked in the Last Year: No - Immunization History Most Recent Influenza Vaccination: 07/2015 Most Recent Tetanus Shot: 07/2013 Most Recent Pneumonia Vaccination: never received Vaccination Up to Date: Yes Physical Exam Triage Information Reviewed: Yes Appearance: Well-Appearing, No Pain Distress, Well-Nourished Vital Signs: Initial Vital Signs Temp 97.9 F 02/18/17 08:43 Pulse 80 02/18/17 08:43 Resp 16 02/18/17 08:43 BP 126/69 02/18/17 08:43 Pulse Ox 100 02/18/17 08:43 Vital Signs Reviewed: Yes Eyes: Positive: Conjunctiva Clear. Negative: Discharge ENT: Negative: Pharyngeal erythema, Nasal congestion, Nasal drainage, TM bulging , TM dull, TM red, Tonsillar swelling, Tonsillar exudate Dental: Negative: Gross Decay/Caries @, Dental Fracture @ Neck: Positive: Supple, Nontender, No Lymphadenopathy. Negative: Nuchal Rigidity Respiratory: Positive: Chest non-tender, Lungs clear, No respiratory distress, No accessory muscle use. Negative: Rhonchi, Wheezing Cardiovascular: Positive: RRR, No Murmur Abdomen Description: Positive: Nontender, No Organomegaly, Soft. Negative: Distended, Guarding Musculoskeletal: Positive: Strength Intact, ROM Intact, No Edema Neurological: Positive: Alert, Muscle Tone Normal Psychological: Positive: Age Appropriate Behavior, Consolable Skin: Positive: rashes - She has 2-4 erythematous papules of the right arm. A few less were on the left arm. No lesions were seen elsewhere on the body except of the lower abdomen. No vesicles.. Negative: breakdown Course/Dx - Course Course Of Treatment: Please take the medication as directed and see your primary care provider early next week. - Differential Diagnoses - Skin Complaint Differential Diagnoses: Cellulitis, Impetigo, Urticaria - Diagnoses Provider Diagnoses: Papular urticaria. Discharge - Discharge Plan Condition: Stable Disposition: HOME Patient Education Materials: Urticaria (ED) Referrals: Jong Lyon III, NP [Primary Care Provider] - 1 Week (Please see your primary care provider in a week to see how well you are doing. If you get worse, please be seen sooner in the ER or through us.)
== END 2017-02-18 09:58 | disposition home or self-care (01) ==
LOC: UCEAST 08:32
DX: L50.8 Other urticaria (principal); E10.9 Type 1 diabetes mellitus without complications; I10 Essential (primary) hypertension; J45.909 Unspecified asthma, uncomplicated
CPT/HCPCS: 99212; G0463

== ENCOUNTER 2018-05-12 19:05 | Emergency (ER) | payer OTHER ==
[2018-05-12 19:30] VITALS: BP 164/93
--- NOTE | 2018-05-13 06:21 | ED ---
Delfino Banerjee Tiffany, scribed for Ankit De Jesus MD on 05/12/18 at 1949 . Back Pain - HPI Summary HPI Summary: 38 year old F presenting to [facility] complains of right-sided back pain s/p lifting heavy boxes two days ago at work. Describes the pain as constant. Rates the pain 8/10 in severity. Symptoms aggravated by walking, exertion, breathing. Symptoms alleviated by nothing. Patient denies fever, shortness of breath. Patient says she is not supposed to lift heavy boxes because she had in Dec 2017 that hasn't healed completely. 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 - History of Current Complaint Chief Complaint: EDBackInjuryPain Stated Complaint: PAIN ON RT SIDE Time Seen by Provider: 05/12/18 19:36 Hx Obtained From: Patient Hx Last Menstrual Period: 02/01/17 Onset/Duration: Lasting Days - 2, Still Present Onset/Duration: Started Days Ago - 2, Still Present Timing: Constant Severity Currently: Severe Pain Intensity: 8 Pain Scale Used: 0-10 Numeric Aggravating Symptom(s): Lifting, Walking, Other - exertion Alleviating Symptom(s): Nothing Associated Signs And Symptoms: Positive: Negative - shortness of breath. Negative: Fever - Allergies/Home Medications Allergies/Adverse Reactions: Allergies Allergy/AdvReac Type Severity Reaction Status Date / Time atorvastatin Allergy Hives Verified 05/12/18 19:39 lisinopril Allergy Hives Verified 05/12/18 19:39 Penicillins Allergy Anaphylatic Verified 05/12/18 19:39 Shock PMH/Surg Hx/FS Hx/Imm Hx Previously Healthy: No Endocrine/Hematology History: Reports: Hx Diabetes - TYPE 1 Denies: Hx Anticoagulant Therapy, Hx Thyroid Disease Cardiovascular History: Reports: Hx Hypercholesterolemia, Hx Hypertension Denies: Hx Congestive Heart Failure, Hx Deep Vein Thrombosis, Hx Myocardial Infarction, Hx Pacemaker/ICD Respiratory History: Reports: Hx Asthma, Hx Chronic Bronchitis - not chronic. Has had bronchitis Denies: Hx Chronic Obstructive Pulmonary Disease (COPD), Hx Lung Cancer, Hx Pneumonia, Hx Pulmonary Embolism Comment Only: Other Respiratory Problems/Disorders - Bee allergy GI History: Denies: Hx Gall Bladder Disease, Hx Gastrointestinal Bleed, Hx Ulcer, Hx Urosepsis History: Denies: Hx Kidney Stones, Hx Renal Disease Musculoskeletal History: Reports: Other Musculoskeletal History - early onset of MS Sensory History: Denies: Hx Hearing Aid Neurological History: Reports: Hx Migraine - chronic (on topamax: 50mg BID) Denies: Hx Dementia, Hx Seizures, Hx Transient Ischemic Attacks (TIA) Psychiatric History: Denies: Hx Anxiety, Hx Depression, Hx Panic Disorder, Hx Schizophrenia, Hx Bipolar Disorder - Surgical History Surgery Procedure, Year, and Place: Dec 2017 - Immunization History Date of Tetanus Vaccine: Unk Date of Influenza Vaccine: Fall 2013 Infectious Disease History: No Infectious Disease History: Denies: Hx Clostridium Difficile, Hx Hepatitis, Hx Human Immunodeficiency Virus (HIV), Hx of Known/Suspected MRSA, Hx Shingles, Hx Tuberculosis, Hx Known/ Suspected VRE, Hx Known/Suspected VRSA, History Other Infectious Disease, Traveled Outside the [place] in Last 30 Days - Family History Known Family History: Positive: Hypertension, Diabetes - Social History Alcohol Use: None Hx Substance Use: No Substance Use Type: Reports: None Hx Tobacco Use: No Smoking Status (MU): Never Smoked Tobacco Have You Smoked in the Last Year: No Review of Systems Negative: Fever Negative: Shortness Of Breath Positive: Other - right-sided back pain All Other Systems Reviewed And Are Negative: Yes Physical Exam - Summary Physical Exam Summary: ppearance: Well appearing, no pain distress Skin: warm, dry, reflects adequate perfusion Head/face: normal Eyes: EOMI, GLORIA ENT: normal Neck: supple, non-tender Respiratory: CTA, breath sounds present Cardiovascular: RRR, pulses symmetrical Abdomen: non-tender, soft Bowel Sounds: present Musculoskeletal: normal ROM, mild muscular tenderness on the right mid to lower parathoracic and upper paralumbar musculature Neuro: normal, sensory motor intact, A&Ox3 Triage Information Reviewed: Yes Vital Signs On Initial Exam: Initial Vitals Temp Pulse Resp BP Pulse Ox 98.0 F 87 16 164/93 98 05/12/18 19:10 05/12/18 19:10 05/12/18 19:10 05/12/18 19:10 05/12/18 19:10 Vital Signs Reviewed: Yes Diagnostics - Vital Signs Vital Signs Temp Pulse Resp BP Pulse Ox 05/12/18 19:10 98.0 F 87 16 164/93 98 - Laboratory Lab Statement: Any lab studies that have been ordered have been reviewed, and results considered in the medical decision making process. Back Pain Course/Dx - Course Course Of Treatment: Patient with minimal discomfort with motion in her mid thoracic through upper lumbar area. No midline tenderness or indication for imaging. Treat symptomatically. Refer to chiropractic. - Diagnoses Provider Diagnoses: Lumbar strain, Strain of thoracic region Discharge - Sign-Out/Discharge Documenting (check all that apply): Discharge/Admit/Transfer - discharge - Discharge Plan Condition: Good Disposition: HOME Prescriptions: Cyclobenzaprine (NF) [Cyclobenzaprine 5 MG (NF)] 5 mg PO TID PRN #12 tab PRN Reason: muscle pain Naproxen [Naproxen 250 mg tab] 250 mg PO BID PRN #10 tablet PRN Reason: Pain Patient Education Materials: Back Pain (ED), Lower Back Exercises (ED) Referrals: Jong Lyon III COMBIN[employer] WINDOW INSTALLER [Primary Care Provider] - Additional Instructions: Call [facility] at [address] [place] [address]. . Call first thing in the morning for an appointment Ice sore areas, range of motion exercises and stretching may help. Return with difficulty breathing, worse, new symptoms, high blood sugars, or other concerns - Billing Disposition and Condition Condition: GOOD Disposition: Home The documentation as recorded by the Delfino arias Tiffany accurately reflects the service I personally performed and the decisions made by , Ankit De Jesus MD.
== END 2018-05-12 20:03 | disposition home or self-care (01) ==
LOC: ED 19:05
DX: S39.012A Strain of muscle, fascia and tendon of lower back, initial encounter (principal); S29.012A Strain of muscle and tendon of back wall of thorax, initial encounter; E10.9 Type 1 diabetes mellitus without complications; E78.00 Pure hypercholesterolemia, unspecified; I10 Essential (primary) hypertension; J45.909 Unspecified asthma, uncomplicated; G35 Multiple sclerosis; X50.0XXA Overexertion from strenuous movement or load, initial encounter; Y92.9 Unspecified place or not applicable
CPT/HCPCS: 99282

== ENCOUNTER 2018-08-22 08:24 | Emergency (ER) | payer OTHER ==
--- OUTSIDE RECORDS SUMMARY | 2018-08-22 08:37 | XMS REPORT | Continuity of Care Document ---
:1980 External Reference #:[id number] Author Name Sekou Cueva MD Address [address] [place] [address] Care Team Providers Name Role Phone PRETTY Arzola III Care Team Information Fitter Up Unavailable Payers Type Date Identification Numbers Payment Provider Subscriber Expires: 2018 Policy Number: [id number] Jeff [facility] PayID: [id number] [address] [place] [address] Effective: 2018 Policy Number: Nickolas [facility] [id number] Medicaid PayID: [id number] [address] Advance Directives Description No Information Available Problems Description No Information Family History Date Family Member(s) Problem(s) Comments General Unknown Social History Type Date Description Comments Sex Unknown Occupation [employer] Tobacco Use Start: Unknown Never Smoked Cigarettes ETOH Use Denies alcohol use Tobacco Use Start: Unknown Patient has never smoked Smoking Status Reviewed: 11/03/16 Patient has never smoked Exercise Type/Frequency Walks daily Moving around a lot at work Allergies, Adverse Reactions, Alerts Date Description Reaction Status Severity Comments 11/03/2016 Penicillin Active 05/02/2018 Latex Hives Active 07/15/2018 Seroquel Active hives Medications Medication Date Status Form Strength Qnty SIG Indications Ordering Provider Triamcinolone 07/25 Active Cream 0.1% 30gm 1 apply to L50.1 Sekou Acetonide affected [place] area daily , Imitrex 06/30 Active Tablets 50mg 18tab take 1 Sekou s tablet by Heetdertamiko mouth at , onset of headache; may repeat once as needed; maximum daily dose=2 Diabetes Test 06/10 Active 100un Compatible E11.9 Jong its with Camron monitor III, CLIENT SERVICE MANAGER-C Lancets 06/09 Active 100un compatible E11.9 Sekou its with Hammad snider MD next Zyrtec Allergy 06/07 Active Capsules 10mg 90cap 1 by mouth Sekou /2017 s every day MD Hammad Lisinopril-Hydroch 03/25 Active Tablets 20-25mg 30tab 1 by mouth Sekou lorothiazide s every day MD Hammad Atenolol 12/24 Active Tablets 100mg 30tab Take One Sekou s Tablet By [place]et[place]tamiko Mouth Every , Day Basaglar Kwikpen 02/23 Active Solution 100Unit/M 3ml inject Pen-Injec L units at [facility] t bedtime MD Pen [place] 03/30" 11/13 Active Misc 31G X 8 100un use on mm its solostar Camron pen every III, day CLIENT SERVICE MANAGER-C Topiramate Active Tablets 50mg 60tab 1 by mouth Sekou / s twice daily MD Hammad Potassium Chloride Active Capsules 10Meq 120ca 1 by mouth Sekou ER /0000 ER ps 4x daily MD Hammad Onetouch Verio 06/10 Hx Strips 200un use to test its twice daily Shortle, - SALESPERSON [employer] 06/10 Diabetes Test 06/09 Hx 100un Compatible E11.9 Sekou its with Hammad - monitor MD 06/10 Seroquel 06/09 Hx Tablets 25mg 30tab 1 tab by F31.31 Sek[facility] , 07/15 Fluticasone 02/05 Hx Aerosol 232-14mcg 2unit inhale 1 Sekou Propionate/[place] /2017 /Act s puff by Hammad rol - mouth 2 MD 07/25 times per day for asthma Onemei Conte 01/20 Hx Strips 100un to test Sekou its daily fs Hammad Gómez glucose MD 06/10 Jarrell Conte 01/13 Hx Kit w/Device 1unit monitor Sekou Sync Bloodglucose s blood sugar Hammad Monitoring System MD Dalia 06/10 Prednisone 12/30 Hx Tablets 50mg 3tabs 1 by mouth With Food P. - 13 Hours Blegen, 01/12 Prior, 7 M.D. /2016 Hours Prior And 1 Hour Prior To Procedure Lantus Solostar 11/13 Hx Solution 100Unit/M 15ml inject 14 E11.9 Jong Pen-Injec L units at [place] - t bedtime III, 02/23 [facility]- Atenolol Hx Tablets 50mg 30tab 1 by mouth Sekou /0000 s every day Hammad Gómez MD 12/09 Loratadine Hx Tablets 10mg 30tab take one Sekou /0000 s tablet by [place] - mouth every MD 06/07 day for allergies Glipizide Hx Tablets 10mg 30tab 1 by mouth Sekou /0000 s daily Hammad Gómez MD 12/09 Metformin HCL Hx Tablets 1000mg 60tab take one E11.9 Jong /0000 s tablet by Camron - mouth once III, 01/12 daily for 2 weeks, then stop. Benzonatate Hx Capsules 200mg Unknown /0000 - 12/09 Cyclobenzaprine Hx Tablets 10mg Unknown HCL /0000 - 12/09 Advair Diskus Hx Aerosol 250-50mcg 60uni Inhale 1 Sekou /0000 /Dose ts puff by [place] - mouth MD Cyndi 02/07 times per day for chronic obstructive lung disease Ventolin HFA Hx Aerosol 108(90Bas 8gm 2 puffs Sekou /0000 e) every every Hammad Gómez mcg/Act 4-6 hours MD 12/24 as needed wheezing/ti ghtness Omeprazole Hx Tablets 20mg 30tab 1 by mouth Sekou /0000 DR s twice daily Hammad Gómez MD 12/24 Hydrocodone-Acetam Hx Tablets 5-325mg 10tab 1 by mouth Jong inophen /0000 s every six Camron - hours as III, 07/25 needed for CLIENT SERVICE MANAGER-C severe pain. Labetalol HCL Hx Tablets 300mg take two Unknown /0000 tablet by - mouth twice 12/24 a Nifedipine ER Hx Tablets 60mg 1 tab by Unknown /0000 ER 24HR mouth daily - every 12/09 Lisinopril Hx Tablets 10mg 30tab Take One Sekou /0000 s Tablet By Avietrossi - Mouth Every MD Hydrochlorothiazid Hx Tablets 25mg 30tab Take One Sekou e /0000 s Tablet By Avietrossi - Mouth Santi , Immunizations CPT Code Status Date Vaccine Lot # [id number] Given 08/04/2017 Tdap (Adacel) [id number] Given 08/04/2017 Influenza Virus Vaccine, Quadrivalent, 3 Yr > Quad, Preserv Free [id number] Given 01/12/2017 Influenza Virus Vaccine, Quadrivalent, 3 Yr > [id number] Quad, Preserv Free Vital Signs Date Vital Result Comment 07/25/2018 9:16am Weight 188.00 lb Weight 85.277 kg BP Systolic 130 mmHg BP Diastolic 78 mmHg Heart Rate 60 /min Body Temperature 98.0 F Respiratory Rate 16 /min Height 63.5 inches 5'3.50" BMI (Body Mass Index) 32.8 kg/m2 O2 % BldC Oximetry 98 % 06/09/2018 1:23pm Weight 197.00 lb Weight 89.359 kg BP Systolic 98 mmHg BP Diastolic 72 mmHg Heart Rate 72 /min Body Temperature 97.2 F Respiratory Rate 18 /min O2 % BldC Oximetry 98 % 05/02/2018 4:55pm Weight 205.00 lb Weight 92.988 kg BP Systolic 134 mmHg BP Diastolic 82 mmHg Heart Rate 69 /min Body Temperature 99.2 F Respiratory Rate 15 /min Height 63.5 inches 5'3.50" BMI (Body Mass Index) 35.7 kg/m2 O2 % BldC Oximetry 98 % 04/12/2018 10:33am BP Systolic 120 mmHg BP Diastolic 92 mmHg 12/24/2017 10:42am Weight 194.00 lb Weight 87.998 kg BP Systolic 155 mmHg BP Diastolic 80 mmHg Heart Rate 112 /min Body Temperature 98.0 F O2 % BldC Oximetry 98 % 12/09/2017 1:38pm Weight 198.00 lb Weight 89.813 kg BP Systolic 174 mmHg BP Diastolic 94 mmHg Heart Rate 109 /min Body Temperature 96.7 F Respiratory Rate 18 /min O2 % BldC Oximetry 98 % 01/26/2017 8:47am Weight 222.00 lb Weight 100.699 kg BP Systolic 124 mmHg BP Diastolic 78 mmHg Heart Rate 90 /min Body Temperature 96.7 F Respiratory Rate 18 /min O2 % BldC Oximetry 99 % 01/12/2017 4:02pm Weight 219.00 lb Weight 99.338 kg BP Systolic 120 mmHg BP Diastolic 72 mmHg Heart Rate 72 /min Body Temperature 97.7 F O2 % BldC Oximetry 98 % 12/29/2016 9:34am Weight 219.00 lb Weight 99.338 kg BP Systolic 100 mmHg BP Diastolic 68 mmHg Heart Rate 68 /min Body Temperature 96.9 F Respiratory Rate 12 /min 12/15/2016 2:10pm Weight 219.00 lb Weight 99.338 kg BP Systolic 100 mmHg BP Diastolic 70 mmHg Heart Rate 72 /min Body Temperature 97.0 F Respiratory Rate 12 /min 12/08/2016 9:01am Weight 217.00 lb Weight 98.431 kg BP Systolic 120 mmHg BP Diastolic 90 mmHg Heart Rate 94 /min Body Temperature 97.7 F Respiratory Rate 14 /min O2 % BldC Oximetry 97 % 12/01/2016 8:41am Weight 216.00 lb Weight 97.978 kg BP Systolic 100 mmHg BP Diastolic 70 mmHg Heart Rate 64 /min Body Temperature 97.1 F Respiratory Rate 12 /min 11/13/2016 9:07am Weight 219.00 lb Weight 99.338 kg BP Systolic 120 mmHg BP Diastolic 80 mmHg Heart Rate 64 /min Body Temperature 97.3 F Respiratory Rate 12 /min 11/03/2016 12:57pm Weight 220.00 lb Weight 99.792 kg BP Systolic 140 mmHg BP Diastolic 90 mmHg Heart Rate 72 /min Body Temperature 97.4 F Respiratory Rate 14 /min Height 62.5 inches 5'2.50" BMI (Body Mass Index) 39.6 kg/m2 Results Test Date Facility Test Result H/L Range Note Laboratory test [facility] Hemoglobin A1c 5.4 % 4.0-5.6 1 finding [phone] (Glyco HGB) Lipid Profile [facility] Triglycerides 188 mg/dL 2 (Trig/Chol/HDL) 8 [phone] Cholesterol 220 mg/dL 3 HDL Cholesterol 42.4 mg/dL 4 LDL Cholesterol 140 mg/dL 5 CBC Auto Diff 06/09/2018 [facility] White Blood 8.9 10^3/uL 3.5-10.8 [phone] Count Red Blood Count 5.32 10^6/uL 4.00-5.40 Hemoglobin 14.1 g/dL 12.0-16.0 Hematocrit 42 % 35-47 Mean Corpuscular Volume 78 fL Low 80-97 Mean Corpuscular Hemoglobin 27 pg 27-31 Mean Corpuscular HGB Conc 34 g/dL 31-36 Red Cell Distribution Width 15 % 10.5-15 Platelet Count 305 10^3/uL 150-450 Mean Platelet Volume 8.6 um3 7.4-10.4 Abs Neutrophils 6.4 10^3/uL 1.5-7.7 Abs Lymphocytes 1.5 10^3/uL 1.0-4.8 Abs Monocytes 0.7 10^3/uL 0-0.8 Abs Eosinophils 0.2 10^3/uL 0-0.6 Abs Basophils 0 10^3/uL 0-0.2 Abs Nucleated RBC 0 10^3/uL Granulocyte % 72.1 % 38-83 Lymphocyte % 17.3 % Low 25-47 Monocyte % 8.3 % High 0-7 Eosinophil % 1.9 % 0-6 Basophil % 0.4 % 0-2 Nucleated Red Blood Cells % 0 Comp Metabolic Panel 06/09/2018 [facility] Sodium 138 mmol/L 135-145 [phone] Potassium 3.8 mmol/L 3.5-5.0 Chloride 106 mmol/L 101-111 Co2 Carbon Dioxide 22 mmol/L 22-32 Anion Gap 10 mmol/L 2-11 Glucose 98 mg/dL 70-100 Blood Urea Nitrogen 20 mg/dL 6-24 Creatinine 0.78 mg/dL 0.51-0.95 BUN/Creatinine Ratio 25.6 High 8-20 Calcium 9.6 mg/dL 8.6-10.3 Total Protein 7.5 g/dL 6.4-8.9 Albumin 4.7 g/dL 3.2-5.2 Globulin 2.8 g/dL 2-4 Albumin/Globulin Ratio 1.7 1-3 Total Bilirubin 1.70 mg/dL High 0.2-1.0 Alkaline Phosphatase 88 U/L 34-104 Alt 11 U/L 7-52 Ast 11 U/L Low 13-39 Egfr Non- 83.6 >60 Egfr 101.1 >60 6 Urine Microalbumin 06/09/2018 [facility] Ur Microalbumin 18.6 Random [phone] (mg/L) Urine Creatinine 121.97 mg/dL Urine Microalbumin/Creatinine 15.2 <31 CBC Auto Diff 12/09/2017 [facility] White Blood 7.1 10^3/uL 3.5-10.8 [phone] Count Red Blood Count 4.59 10^6/uL 4.0-5.4 Hemoglobin 12.6 g/dL 12.0-16.0 Hematocrit 37 % 35-47 Mean Corpuscular Volume 81 fL 80-97 Mean Corpuscular Hemoglobin 28 pg 27-31 Mean Corpuscular HGB Conc 34 g/dL 31-36 Red Cell Distribution Width 15 % 10.5-15 Platelet Count 314 10^3/uL 150-450 Mean Platelet Volume 9 um3 7.4-10.4 Abs Neutrophils 5.1 10^3/uL 1.5-7.7 Abs Lymphocytes 1.2 10^3/uL 1.0-4.8 Abs Monocytes 0.6 10^3/uL 0-0.8 Abs Eosinophils 0.2 10^3/uL 0-0.6 Abs Basophils 0 10^3/uL 0-0.2 Abs Nucleated RBC 0 10^3/uL Granulocyte % 71.3 % 38-83 Lymphocyte % 16.9 % Low 25-47 Monocyte % 8.1 % 1-9 Eosinophil % 3.0 % 0-6 Basophil % 0.7 % 0-2 Nucleated Red Blood Cells % 0.1 Comp Metabolic Panel 12/09/2017 [facility] Sodium 138 mmol/L 133-145 [phone] Potassium 3.8 mmol/L 3.5-5.0 Chloride 105 mmol/L 101-111 Co2 Carbon Dioxide 23 mmol/L 22-32 Anion Gap 10 mmol/L 2-11 Glucose 77 mg/dL 70-100 Blood Urea Nitrogen 8 mg/dL 6-24 Creatinine 0.72 mg/dL 0.51-0.95 BUN/Creatinine Ratio 11.1 8-20 Calcium 9.0 mg/dL 8.6-10.3 Total Protein 6.7 g/dL 6.4-8.9 Albumin 4.1 g/dL 3.2-5.2 Globulin 2.6 g/dL 2-4 Albumin/Globulin Ratio 1.6 1-3 Total Bilirubin 1.10 mg/dL High 0.2-1.0 Alkaline Phosphatase 89 U/L 34-104 Alt 12 U/L 7-52 Ast 13 U/L 13-39 Egfr Non- 92.2 >60 Egfr 118.5 >60 7 Laboratory test 12/09/2017 [facility] Hemoglobin A1c 5.4 % 4.0-5.6 8 finding [phone] (Glyco HGB) Lipid Profile 12/09/2017 [facility] Triglycerides 221 9 (Trig/Chol/HDL) [phone] mg/dL Cholesterol 250 mg/dL 10 HDL Cholesterol 45.2 mg/dL 11 LDL Cholesterol 161 mg/dL 12 Laboratory 02/10/2017 [facility] Hemoglobin 6.5 % High Less than 13 test finding [phone] A1c (Glyco 6.0 HGB) Rapid 02/06/2017 [facility] Influenza A NEGATIVE Negative 14 Influenza A & [phone] Molecular B Molecular Influenza B Molecular NEGATIVE Negative Laboratory 02/06/2017 [facility] Rapid SEE RESULT 15 test finding [phone] Influenza A BELOW & B Antigen Hepatitis 12/15/2016 [facility] Hepatitis B Nonreactive Nonreactive Acute Panel [phone] Surface Antigen Hepatitis C Antibody Nonreactive Nonreactive Hepatitis B Core IgM Nonreactive Nonreactive Hepatitis A AB IgM Nonreactive Nonreactive CBC Auto Diff 12/15/2016 [facility] White Blood 10.3 10^3/uL 3.5-10.8 [phone] Count Red Blood Count 4.93 10^6/uL 4.0-5.4 Hemoglobin 13.0 g/dL 12.0-16.0 Hematocrit 40 % 35-47 Mean Corpuscular Volume 81 fL 80-97 Mean Corpuscular Hemoglobin 26 pg Low 27-31 Mean Corpuscular HGB Conc 33 g/dL 31-36 Red Cell Distribution Width 14 % 10.5-15 Platelet Count 323 10^3/uL 150-450 Mean Platelet Volume 9 um3 7.4-10.4 Abs Neutrophils 6.4 10^3/uL 1.5-7.7 Abs Lymphocytes 2.8 10^3/uL 1.0-4.8 Abs Monocytes 0.7 10^3/uL 0-0.8 Abs Eosinophils 0.2 10^3/uL 0-0.6 Abs Basophils 0.1 10^3/uL 0-0.2 Abs Nucleated RBC 0.03 10^3/uL Granulocyte % 62.7 % 38-83 Lymphocyte % 27.3 % 25-47 Monocyte % 7.2 % 1-9 Eosinophil % 2.3 % 0-6 Basophil % 0.5 % 0-2 Nucleated Red Blood Cells % 0.3 Laboratory test 12/09/2016 [facility] Partial 30.9 seconds 26.0-36.3 finding [phone] Thrombo Time PTT Lactic Acid 1.8 mmol/L 0.5-2.0 16 Inr/Protime 12/09/2016 [facility] Inr 0.95 0.89- 1.11 [phone] Laboratory test 12/09/2016 [facility] HCG < 0.60 17 finding [phone] mIU/mL TSH (Thyroid Stimulating Horm) 1.60 mcIU/mL 0.34-5.60 CKMB 12/09/2016 [facility] CKMB ng/mL 0.7 ng/mL 0.6-6.3 [phone] Laboratory test 12/09/2016 [facility] Magnesium 2.0 mg/dL 1.9-2.7 finding [phone] Lipase 17 U/L 11.0-82.0 Creatine Kinase 43 U/L 10-223 C Reactive Protein 14.25 mg/L High < 5.00 18 Troponin-I (TnI) 0.00 ng/mL <0.04 19 Comp Metabolic Panel 12/09/2016 [facility] Sodium 133 mmol/L 133-145 [phone] Potassium 3.6 mmol/L 3.5-5.0 Chloride 101 mmol/L 101-111 Co2 Carbon Dioxide 23 mmol/L 22-32 Anion Gap 9 mmol/L 2-11 Glucose 112 mg/dL High 70-100 Blood Urea Nitrogen 15 mg/dL 6-24 Creatinine 0.67 mg/dL 0.51-0.95 BUN/Creatinine Ratio 22.4 High 8-20 Calcium 10.2 mg/dL 8.6-10.3 Total Protein 8.5 g/dL 6.4-8.9 Albumin 5.0 g/dL 3.2-5.2 Globulin 3.5 g/dL 2-4 Albumin/Globulin Ratio 1.4 1-3 Total Bilirubin 0.80 mg/dL 0.2-1.0 Alkaline Phosphatase 88 U/L 34-104 Alt 18 U/L 7-52 Ast 16 U/L 13-39 Egfr Non- 100.8 >60 Egfr 129.6 >60 20 Laboratory test 12/09/2016 [facility] B-Type 16 pg/ mL 21 finding [phone] Natriuretic Peptide BNP CBC Auto Diff 12/09/2016 [facility] White Blood 11.9 High 3.5-1 [phone] Count 10^3/uL 0.8 Red Blood Count 5.37 10^6/uL 4.0-5.4 Hemoglobin 14.1 g/dL 12.0-16.0 Hematocrit 43 % 35-47 Mean Corpuscular Volume 79 fL Low 80-97 Mean Corpuscular Hemoglobin 26 pg Low 27-31 Mean Corpuscular HGB Conc 33 g/dL 31-36 Red Cell Distribution Width 14 % 10.5-15 Platelet Count 350 10^3/uL 150-450 Mean Platelet Volume 9 um3 7.4-10.4 Abs Neutrophils 7.7 10^3/uL 1.5-7.7 Abs Lymphocytes 3.2 10^3/uL 1.0-4.8 Abs Monocytes 0.8 10^3/uL 0-0.8 Abs Eosinophils 0.2 10^3/uL 0-0.6 Abs Basophils 0.1 10^3/uL 0-0.2 Abs Nucleated RBC 0.02 10^3/uL Granulocyte % 64.3 % 38-83 Lymphocyte % 26.6 % 25-47 Monocyte % 7.0 % 1-9 Eosinophil % 1.4 % 0-6 Basophil % 0.7 % 0-2 Nucleated Red Blood Cells % 0.2 CBC Auto Diff 12/06/2016 [facility] White Blood 8.9 10^3/uL 3.5-10.8 [phone] Count Red Blood Count 4.79 10^6/uL 4.0-5.4 Hemoglobin 12.6 g/dL 12.0-16.0 Hematocrit 39 % 35-47 Mean Corpuscular Volume 82 fL 80-97 Mean Corpuscular Hemoglobin 26 pg Low 27-31 Mean Corpuscular HGB Conc 32 g/dL 31-36 Red Cell Distribution Width 14 % 10.5-15 Platelet Count 312 10^3/uL 150-450 Mean Platelet Volume 9 um3 7.4-10.4 Abs Neutrophils 6.0 10^3/uL 1.5-7.7 Abs Lymphocytes 2.1 10^3/uL 1.0-4.8 Abs Monocytes 0.6 10^3/uL 0-0.8 Abs Eosinophils 0.2 10^3/uL 0-0.6 Abs Basophils 0 10^3/uL 0-0.2 Abs Nucleated RBC 0 10^3/uL Granulocyte % 67.3 % 38-83 Lymphocyte % 23.4 % Low 25-47 Monocyte % 7.0 % 1-9 Eosinophil % 1.9 % 0-6 Basophil % 0.4 % 0-2 Nucleated Red Blood Cells % 0 Comp Metabolic Panel 12/06/2016 [facility] Sodium 135 mmol/L 133-145 [phone] Potassium 3.8 mmol/L 3.5-5.0 Chloride 104 mmol/L 101-111 Co2 Carbon Dioxide 23 mmol/L 22-32 Anion Gap 8 mmol/L 2-11 Glucose 251 mg/dL High 70-100 Blood Urea Nitrogen 11 mg/dL 6-24 Creatinine 0.73 mg/dL 0.51-0.95 BUN/Creatinine Ratio 15.1 8-20 Calcium 9.1 mg/dL 8.6-10.3 Total Protein 7.4 g/dL 6.4-8.9 Albumin 4.3 g/dL 3.2-5.2 Globulin 3.1 g/dL 2-4 Albumin/Globulin Ratio 1.4 1-3 Total Bilirubin 0.50 mg/dL 0.2-1.0 Alkaline Phosphatase 63 U/L 34-104 Alt 16 U/L 7-52 Ast 13 U/L 13-39 Egfr Non- 91.3 >60 Egfr 117.4 >60 22 Laboratory test 12/06/2016 [facility] HCG < 0.60 23 finding [phone] mIU/mL Rapid Influenza 12/06/2016 [facility] Influenza A NEGATIVE Negative 24 A & B Molecular [phone] Molecular Influenza B Molecular NEGATIVE Negative Laboratory test 12/06/2016 [facility] Rapid Influenza SEE RESULT 25 finding [phone] A & B Antigen BELOW CBC Auto Diff 11/10/2016 [facility] White Blood 9.6 10^3/uL 3.5-10 [phone] Count .8 Red Blood Count 4.67 10^6/uL 4.0-5.4 Hemoglobin 12.6 g/dL 12.0-16.0 Hematocrit 37 % 35-47 Mean Corpuscular Volume 80 fL 80-97 Mean Corpuscular Hemoglobin 27 pg 27-31 Mean Corpuscular HGB Conc 34 g/dL 31-36 Red Cell Distribution Width 14 % 10.5-15 Platelet Count 328 10^3/uL 150-450 Mean Platelet Volume 9 um3 7.4-10.4 Abs Neutrophils 5.9 10^3/uL 1.5-7.7 Abs Lymphocytes 2.8 10^3/uL 1.0-4.8 Abs Monocytes 0.7 10^3/uL 0-0.8 Abs Eosinophils 0.2 10^3/uL 0-0.6 Abs Basophils 0 10^3/uL 0-0.2 Abs Nucleated RBC 0 10^3/uL Granulocyte % 61.3 % 38-83 Lymphocyte % 29.4 % 25-47 Monocyte % 7.0 % 1-9 Eosinophil % 1.9 % 0-6 Basophil % 0.4 % 0-2 Nucleated Red Blood Cells % 0 Comp Metabolic Panel 11/10/2016 [facility] Sodium 136 mmol/L 133-145 [phone] Potassium 4.1 mmol/L 3.5-5.0 Chloride 105 mmol/L 101-111 Co2 Carbon Dioxide 24 mmol/L 22-32 Anion Gap 7 mmol/L 2-11 Glucose 123 mg/dL High 70-100 Blood Urea Nitrogen 7 mg/dL 6-24 Creatinine 0.60 mg/dL 0.51-0.95 BUN/Creatinine Ratio 11.7 8-20 Calcium 9.1 mg/dL 8.6-10.3 Total Protein 6.7 g/dL 6.4-8.9 Albumin 4.2 g/dL 3.2-5.2 Globulin 2.5 g/dL 2-4 Albumin/Globulin Ratio 1.7 1-3 Total Bilirubin 0.90 mg/dL 0.2-1.0 Alkaline Phosphatase 66 U/L 34-104 Alt 25 U/L 7-52 Ast 24 U/L 13-39 Egfr Non- 114.4 >60 Egfr 147.2 >60 26 Lipid Profile 11/10/2016 [facility] Triglycerides 161 mg/dL 27 (Trig/Chol/HDL) [phone] Cholesterol 214 mg/dL 28 HDL Cholesterol 39.4 mg/dL 29 LDL Cholesterol 142 mg/dL 30 Laboratory test 11/03/2016 [facility] Hemoglobin A1c 7.6 % High Less than 31 finding [phone] (Glyco HGB) 6.0 1 Therapeutic target for the treatment of diabetes mellitus patients is <7% HBA1C, and in selective patients <6.0%. Please refer to [place] [employer] diabetic care guidelines for further information. 2 Desirable: <150 Borderline High: 150-199 High: 200-499 Very High: >500 3 Desirable: <200 Borderline High: 200-239 High: >239 4 Low: <40 Desirable: 40-60 High: >60 5 Desirable: <100 Near Optimal: 100-129 Borderline High: 130-159 High: 160-189 Very High: >189 6 Because ethnic data is not always readily available, this report includes an eGFR for both -Americans and non- Americans. The National Kidney Disease Education Program (NKDEP) does not endorse the use of the MDRD equation for patients that are not between the ages of 18 and 70, are , have extremes of body size, muscle mass, or nutritional status, or are non- or non-. According to the National Kidney Foundation, irrespective of diagnosis, the stage of the disease is based on the level of kidney function: Stage Description GFR(mL/min/1.73 m(2)) 1 Kidney damage with normal or decreased GFR 90 2 Kidney damage with mild decrease in GFR 60-89 3 Moderate decrease in GFR 30-59 4 Severe decrease in GFR 15-29 5 Kidney failure <15 (or dialysis) 7 Because ethnic data is not always readily available, this report includes an eGFR for both -Americans and non- Americans. The National Kidney Disease Education Program (NKDEP) does not endorse the use of the MDRD equation for patients that are not between the ages of 18 and 70, are , have extremes of body size, muscle mass, or nutritional status, or are non- or non-. According to the National Kidney Foundation, irrespective of diagnosis, the stage of the disease is based on the level of kidney function: Stage Description GFR(mL/min/1.73 m(2)) 1 Kidney damage with normal or decreased GFR 90 2 Kidney damage with mild decrease in GFR 60-89 3 Moderate decrease in GFR 30-59 4 Severe decrease in GFR 15-29 5 Kidney failure <15 (or dialysis) 8 Therapeutic target for the treatment of diabetes mellitus patients is <7% HBA1C, and in selective patients <6.0%. Please refer to [place] [employer] diabetic care guidelines for further information. 9 Desirable: <150 Borderline High: 150-199 High: 200-499 Very High: >500 10 Desirable: <200 Borderline High: 200-239 High: >239 11 Low: <40 Desirable: 40-60 High: >60 12 Desirable: <100 Near Optimal: 100-129 Borderline High: 130-159 High: 160-189 Very High: >189 13 Therapeutic target for the treatment of diabetes Mellitus patients is <7% HBA1C, and in selective patients <6.0%.Please refer to [place] [employer] Diabetic care guidelines for further information. 14 Group Work Program Aide: [id number] Jevon Velasco 15 SEE RESULT BELOW Name: SHERIN GREGORIO : [address]: Timi Ramos MD Acct: [id number] Unit: [id number] AGE: 37 Location: ED Re02/06/17 SEX: F Status: REG ER SPEC: [id number] DEYSI: 02/06/[address]: Deanne GUNN REQ: [id number] RECD: 02/06/17 STATUS: OFELIA MCLAIN DR: Jong Lyon III SALESPERSON ART OBJECTS Timi Ramos MD _ [facility] ORDERED: Flu A B Request Procedure Result Reported Site Rapid Influenza A B Request Final 02/06/17- 1930 ML Specimen received for Influenza A/B Molecular testing * ML - MAIN LAB ([facility]) . END OF REPORT * ML=Testing performed at Main Lab DEPARTMENT OF PATHOLOGY, [address] [place] [address] Tate Moulton M.D. Director [facility] # [id number] 16 [facility] Severe Sepsis and Septic Shock Management Bundle Measure requires all lactic acids initially measuring >2.0 mmol/L be repeated. 17 <5.0 Negative 5.0 - 25.0 Indeterminate (Repeat testing recommended after 72 hours) >25.0 Positive Perimenopausal women can display HCG levels of up to 20 mIU/mL 18 Acute inflammation: >10.00 19 99th percentile=0.04 ng/mL Troponin results at [facility] and [facility] are not interchangeable. 20 Because ethnic data is not always readily available, this report includes an eGFR for both -Americans and non- Americans. The National Kidney Disease Education Program (NKDEP) does not endorse the use of the MDRD equation for patients that are not between the ages of 18 and 70, are , have extremes of body size, muscle mass, or nutritional status, or are non- or non-. According to the National Kidney Foundation, irrespective of diagnosis, the stage of the disease is based on the level of kidney function: Stage Description GFR(mL/min/1.73 m(2)) 1 Kidney damage with normal or decreased GFR 90 2 Kidney damage with mild decrease in GFR 60-89 3 Moderate decrease in GFR 30-59 4 Severe decrease in GFR 15-29 5 Kidney failure <15 (or dialysis) 21 >100 to <200 pg/mL: likely compensated congestive heart failure (CHF) 200 to 400 pg/mL: likely moderate CHF >400 pg/mL: likely moderate to severe CHF 22 Because ethnic data is not always readily available, this report includes an eGFR for both -Americans and non- Americans. The National Kidney Disease Education Program (NKDEP) does not endorse the use of the MDRD equation for patients that are not between the ages of 18 and 70, are , have extremes of body size, muscle mass, or nutritional status, or are non- or non-. According to the National Kidney Foundation, irrespective of diagnosis, the stage of the disease is based on the level of kidney function: Stage Description GFR(mL/min/1.73 m(2)) 1 Kidney damage with normal or decreased GFR 90 2 Kidney damage with mild decrease in GFR 60-89 3 Moderate decrease in GFR 30-59 4 Severe decrease in GFR 15-29 5 Kidney failure <15 (or dialysis) 23 <5.0 Negative 5.0 - 25.0 Indeterminate (Repeat testing recommended after 72 hours) >25.0 Positive Perimenopausal women can display HCG levels of up to 20 mIU/mL 24 Group Work Program Aide: [id number] CECILIA DAVENPORT 25 SEE RESULT BELOW Name: SHERIN GREGORIO : [address]: Deon Britton DO Acct: [id number] Unit: [id number] AGE: 36 Location: ED Re12/06/16 SEX: F Status: REG ER SPEC: [id number] DEYSI: 12/06/16-[address] [facility] [address]: Deanne GUNN REQ: [id number] RECD: 12/06/16 STATUS: OFELIA MCLAIN DR: Deon Celestin III SALESPERSON ART OBJECTS _ SOURCE: [facility]: ORDERED: Flu A B Request Procedure Result Reported Site Rapid Influenza A B Request Final 12/06/16- 1024 ML Specimen received for Influenza A/B Molecular testing * ML - MAIN LAB ([facility]) . END OF REPORT * ML=Testing performed at Main Lab DEPARTMENT OF PATHOLOGY, [address] [place] [address] Tate Moulton M.D. Director [facility] # [id number] 26 Because ethnic data is not always readily available, this report includes an eGFR for both -Americans and non- Americans. The National Kidney Disease Education Program (NKDEP) does not endorse the use of the MDRD equation for patients that are not between the ages of 18 and 70, are , have extremes of body size, muscle mass, or nutritional status, or are non- or non-. According to the National Kidney Foundation, irrespective of diagnosis, the stage of the disease is based on the level of kidney function: Stage Description GFR(mL/min/1.73 m(2)) 1 Kidney damage with normal or decreased GFR 90 2 Kidney damage with mild decrease in GFR 60-89 3 Moderate decrease in GFR 30-59 4 Severe decrease in GFR 15-29 5 Kidney failure <15 (or dialysis) 27 Desirable <150 Borderline high 150-199 High 200-499 Very High >500 28 Desirable <200 Borderline high 200-239 High >239 29 Low <40 Desirable: 40-60 High: >60 30 Desirable: <100 mg/dL Near Optimal: 100-129 mg/dL Borderline High: 130-159 mg/dL High: 160-189 mg/dL Very High: >189 mg/dL 31 Therapeutic target for the treatment of diabetes Mellitus patients is <7% HBA1C, and in selective patients <6.0%.Please refer to [place] [employer] Diabetic care guidelines for further information. Procedures Description No Information Available Encounters Type Date Location Provider Dx Diagnosis Office Visit 06/09/2018 [place] Marcus Sapp E11.9 Type 2 diabetes 1:30p MD Hammad mellitus without complications I10 Essential (primary) hypertension F31.31 Bipolar disorder, current episode depressed, mild Office Visit 05/02/2018 4:45p Main Office Sekou Cueva F43.21 Adjustment disorder with depressed mood Office Visit 12/24/2017 10:45a Main Office Sekou Cueva, I10 Essential (primary) hypertension Office Visit 12/09/2017 2:30p Main Office Sekou Cueva I10 Essential (primary) hypertension R21 Rash and other nonspecific skin eruption Office Visit 01/26/2017 8:45a Main Office Jong Lyon M54.5 Low back pain III, CLIENT SERVICE MANAGER-C Office Visit 01/12/2017 4:30p Main Office Jong Lyon E11.9 Type 2 diabetes III, CLIENT SERVICE MANAGER-C mellitus without complications Z23 Encounter for immunization Office Visit 12/29/2016 9:45a Main Office Jong Lyon R10.11 Right upper III, CLIENT SERVICE MANAGER-C quadrant pain Office Visit 12/15/2016 2:45p Main Office Jong Lyon R10.11 Right upper III, CLIENT SERVICE MANAGER-C quadrant pain K76.0 Fatty (change of) liver, not elsewhere classified Office Visit 12/08/2016 9:00a Main Office Jong Lyon J06.9 Acute upper III, CLIENT SERVICE MANAGER-C respiratory infection, unspecified Office Visit 12/01/2016 9:00a Main Office Jong Millers E11.9 Type 2 diabetes III, CLIENT SERVICE MANAGER-C mellitus without complications Office Visit 11/13/2016 9:15a Main Office Jong Millers E11.9 Type 2 diabetes III, CLIENT SERVICE MANAGER-C mellitus without complications Office Visit 11/03/2016 1:30p Main Office Jong Ajtings Z00.01 Encounter for III, CLIENT SERVICE MANAGER-C general adult medical exam w abnormal findings E11.9 Type 2 diabetes mellitus without complications I10 Essential (primary) hypertension Plan of Treatment 07/25/2018 - Sekou Cueva MDL50.1 Idiopathic urticariaNew Medication: Triamcinolone Acetonide 0.1 % - 1 apply to affected area dailyComments:Her description sounds very much like hives, with a wheal and flare. there are no particular triggers it should have set this off. Her experiment with stopping her antipsychotic was unsuccessful. I advised her to go back on it.They look more like prurigo, or scabies, or pruritus caused by very dry skin.There no specific features of scabies, so we will start with topical use of steroid only to the irritated nodules. I also expressed the importance of not scratching.
[2018-08-22 08:51] VITALS: BP 152/82
--- NOTE | 2018-08-22 09:01 | ED ---
Throat Pain/Nasal Congestion - History of Current Complaint Chief Complaint: UCRespiratory Time Seen by Provider: 08/22/18 08:58 Hx Obtained From: Patient Onset/Duration: Lasting Days Severity: Moderate Cough: Nonproductive - Allergies/Home Medications Allergies/Adverse Reactions: Allergies Allergy/AdvReac Type Severity Reaction Status Date / Time atorvastatin Allergy Hives Verified 05/12/18 19:39 latex Allergy Hives Verified 08/22/18 08:41 lisinopril Allergy Hives Verified 05/12/18 19:39 Penicillins Allergy Anaphylatic Verified 05/12/18 19:39 Shock Home Medications: Home Medications Atenolol TAB* [Tenormin TAB* 50 MG] 50 mg PO BID 08/22/18 [History Confirmed 07/02] Bascular Insulin Pen PRN 08/22/18 [History] Lisinopril/HCTZ 20/25(NF) [Zestoretic 20/25(NF)] 1 tab PO DAILY 08/22/18 [ History Confirmed 08/22/18] PMH/Surg Hx/FS Hx/Imm Hx Previously Healthy: No Endocrine/Hematology History: Reports: Hx Diabetes - TYPE 1 Denies: Hx Anticoagulant Therapy, Hx Thyroid Disease Cardiovascular History: Reports: Hx Hypercholesterolemia, Hx Hypertension Denies: Hx Congestive Heart Failure, Hx Deep Vein Thrombosis, Hx Myocardial Infarction, Hx Pacemaker/ICD Respiratory History: Reports: Hx Asthma, Hx Chronic Bronchitis - not chronic. Has had bronchitis Denies: Hx Chronic Obstructive Pulmonary Disease (COPD), Hx Lung Cancer, Hx Pneumonia, Hx Pulmonary Embolism Comment Only: Other Respiratory Problems/Disorders - Bee allergy GI History: Denies: Hx Gall Bladder Disease, Hx Gastrointestinal Bleed, Hx Ulcer, Hx Urosepsis History: Denies: Hx Kidney Stones, Hx Renal Disease Musculoskeletal History: Reports: Other Musculoskeletal History - early onset of MS Sensory History: Denies: Hx Hearing Aid Neurological History: Reports: Hx Migraine - chronic (on topamax: 50mg BID) Denies: Hx Dementia, Hx Seizures, Hx Transient Ischemic Attacks (TIA) Psychiatric History: Denies: Hx Anxiety, Hx Depression, Hx Panic Disorder, Hx Schizophrenia, Hx Bipolar Disorder - Surgical History Surgery Procedure, Year, and Place: Dec 2017 - Immunization History Date of Tetanus Vaccine: Unk Date of Influenza Vaccine: Fall 2013 Infectious Disease History: No Infectious Disease History: Denies: Hx Clostridium Difficile, Hx Hepatitis, Hx Human Immunodeficiency Virus (HIV), Hx of Known/Suspected MRSA, Hx Shingles, Hx Tuberculosis, Hx Known/ Suspected VRE, Hx Known/Suspected VRSA, History Other Infectious Disease, Traveled Outside the [place] in Last 30 Days - Family History Known Family History: Positive: Hypertension, Diabetes - Social History Alcohol Use: None Hx Substance Use: No Substance Use Type: Reports: None Hx Tobacco Use: No Smoking Status (MU): Never Smoked Tobacco Type: eCigarettes Amount Used/How Often: vapes Have You Smoked in the Last Year: No Review of Systems Constitutional: Negative Eyes: Negative ENT: Negative Cardiovascular: Negative Respiratory: Other Positive: Cough Gastrointestinal: Negative Genitourinary: Negative Musculoskeletal: Negative Skin: Negative Neurological: Negative All Other Systems Reviewed And Are Negative: Yes Physical Exam Triage Information Reviewed: Yes Vital Signs On Initial Exam: Initial Vitals Temp Pulse Resp BP Pulse Ox 36.3 C 52 14 152/82 100 08/22/18 08:46 08/22/18 08:46 08/22/18 08:46 08/22/18 08:46 08/22/18 08:46 Vital Signs Reviewed: Yes Appearance: Positive: Well-Appearing Skin: Positive: Warm, Dry Head/Face: Positive: Normal Head/Face Inspection Eyes: Positive: Normal ENT: Positive: Normal ENT inspection Neck: Positive: Supple Respiratory/Lung Sounds: Positive: Clear to Auscultation Cardiovascular: Positive: Normal Abdomen Description: Positive: Nontender Bowel Sounds: Positive: Present Diagnostics - Vital Signs Vital Signs Temp Pulse Resp BP Pulse Ox 08/22/18 08:46 36.3 C 52 14 152/82 100 - Laboratory Lab Statement: Any lab studies that have been ordered have been reviewed, and results considered in the medical decision making process. EENT Course/Dx - Diagnoses Provider Diagnoses: Viral URI with cough Is Visit Related: No Discharge - Sign-Out/Discharge Documenting (check all that apply): Patient Departure All imaging exams completed and their final reports reviewed: No Studies - Discharge Plan Condition: Good Disposition: HOME Patient Education Materials: Viral Syndrome (ED) Referrals: Jong Lyon III HEALTHCARE TECHNICIAN [Primary Care Provider] - - Billing Disposition and Condition Condition: GOOD Disposition: Home
== END 2018-08-22 09:27 | disposition home or self-care (01) ==
LOC: UCCORT 08:24
DX: J02.9 Acute pharyngitis, unspecified (principal); R05 Cough; Z88.0 Allergy status to penicillin; Z88.8 Allergy status to other drugs, medicaments and biological substances
CPT/HCPCS: 99212; G0463

== ENCOUNTER 2018-10-11 16:13 | Emergency (ER) | payer OTHER ==
[2018-10-11 16:37] VITALS: BP 175/97
--- NOTE | 2018-10-11 18:08 | UC ---
Hand/Wrist HPI - HPI Summary HPI Summary: Pt c/o sudden onset of right wrist pain. Pt denies injury or trauma. Pt states that she repeatedly lifts her 11 month old baby, that she lifts heavy objects at work. She is concerned about wrist being broken and is requesting an xray. Pt is 9 weeks . - History Of Current Complaint Chief Complaint: UCUpperExtremity Stated Complaint: WRIST INJURY Time Seen by Provider: 10/11/18 17:30 Hx Obtained From: Patient Hx Last Menstrual Period: 08/04/18 ?: Yes - 9 weeks Onset/Duration: Sudden Onset, Still Present Severity Initially: Severe Severity Currently: Severe Pain Intensity: 9 Character Of Pain: Dull, Aching, Stiffness Aggravating Factor(s): Movement, Lifting, Flexion, Extension, Internal/External Rotation Alleviating Factor(s): Rest Associated Signs And Symptoms: Positive: Swelling Related History: Dominant Hand Right - Risk Factors Compartment Syndrome Risk Factors: Pain - Allergies/Home Medications Allergies/Adverse Reactions: Allergies Allergy/AdvReac Type Severity Reaction Status Date / Time atorvastatin Allergy Hives Verified 10/11/18 16:37 latex Allergy Hives Verified 10/11/18 16:37 lisinopril Allergy Hives Verified 10/11/18 16:37 Penicillins Allergy Anaphylatic Verified 10/11/18 16:37 Shock PMH/Surg Hx/FS Hx/Imm Hx Previously Healthy: Yes Other History Of: Negative For: HIV, Hepatitis B, Hepatitis C, Anticoagulant Therapy - Surgical History Surgical History: Yes Surgery Procedure, Year, and Place: Nov 2017 - Family History Known Family History: Positive: Hypertension, Diabetes - Social History Occupation: Employed Full-time Lives: With Family Alcohol Use: None Substance Use Type: None Smoking Status (MU): Never Smoked Tobacco Type: eCigarettes Amount Used/How Often: vapes Have You Smoked in the Last Year: Yes - ecigarettes - Immunization History Most Recent Influenza Vaccination: 07/2015 Most Recent Tetanus Shot: 07/2013 Most Recent Pneumonia Vaccination: never received Vaccination Up to Date: Yes Review of Systems All Other Systems Reviewed And Are Negative: Yes Constitutional: Positive: Negative Skin: Positive: Negative Eyes: Positive: Negative ENT: Positive: Negative Respiratory: Positive: Negative Cardiovascular: Positive: Negative Gastrointestinal: Positive: Negative Genitourinary: Positive: Negative Motor: Positive: Decreased ROM - right wrist, Weakness - right wrist Neurovascular: Positive: Negative Musculoskeletal: Positive: Arthralgia, Decreased ROM, Edema, Myalgia Neurological: Positive: Negative Psychological: Positive: Negative Is Patient Immunocompromised?: No Physical Exam Triage Information Reviewed: Yes Appearance: Well-Appearing Vital Signs: Initial Vital Signs Temp 97.4 F 10/11/18 16:32 Pulse 89 10/11/18 16:32 Resp 16 10/11/18 16:32 BP 175/97 10/11/18 16:32 Pulse Ox 99 10/11/18 16:32 Vital Signs Reviewed: Yes Eye Exam: Normal ENT Exam: Normal Dental Exam: Normal Neck exam: Normal Respiratory Exam: Normal Respiratory: Positive: No respiratory distress Musculoskeletal: Positive: Strength Limited @ - right wrist, ROM Limited @ - right wrist, Edema @ - right wrist Neurological Exam: Normal Psychological Exam: Normal Skin Exam: Normal Diagnostics - Radiology No standard instances Radiology Interpretation Completed By: ED Physician - negative for fracture Hand/Wrist Course/Dx - Differential Dx/Diagnosis Differential Diagnosis/HQI/PQRI: Fracture, Sprain, Strain, Tendonitis Provider Diagnosis: Overuse injury, Right wrist pain Discharge - Sign-Out/Discharge Documenting (check all that apply): Patient Departure All imaging exams completed and their final reports reviewed: No - Discharge Plan Condition: Stable Disposition: HOME Patient Education Materials: Arthralgia (ED) Referrals: Daina Brunson MD [Primary Care Provider] - If Needed Cristobal Hernandez MD [Medical Doctor] - If Needed - Billing Disposition and Condition Condition: STABLE Disposition: Home
--- NOTE | 2018-10-12 08:28 | UC ---
- Progress Note Progress Note: RADIOLOGY REPORT REVIEWED. NO FRACTURE. NO CHANGE IN MGMT. Course/Dx - Diagnoses Provider Diagnoses: Overuse injury, Right wrist pain Discharge - Sign-Out/Discharge Documenting (check all that apply): Post-Discharge Follow Up All imaging exams completed and their final reports reviewed: Yes - Discharge Plan Condition: Stable Disposition: HOME Patient Education Materials: Arthralgia (ED) Referrals: Daina Brunson MD [Primary Care Provider] - If Needed Cristobal Hernandez MD [Medical Doctor] - If Needed - Billing Disposition and Condition Condition: STABLE Disposition: Home
== END 2018-10-11 18:35 | disposition home or self-care (01) ==
LOC: UCEAST 16:13
DX: M70.88 Other soft tissue disorders related to use, overuse and pressure other site (principal); Y93.89 Activity, other specified; Z88.0 Allergy status to penicillin; F17.290 Nicotine dependence, other tobacco product, uncomplicated; Z88.8 Allergy status to other drugs, medicaments and biological substances
CPT/HCPCS: 99212; G0463